=== PATIENT | female | born 1995 | race Caucasian/White ===

== ENCOUNTER 2016-05-04 19:48 | Emergency (ER) | payer MEDICAID ==
[~2016-05-04] VITALS: Ht 162.6 cm; Wt 63.5 kg
[~2016-05-04 19:48] MED LIST: CEPH-264 PO
[2016-05-04 20:10] VITALS: BP 132/58
--- NOTE | 2016-05-04 21:08 | PHYS DOC ---
Past Medical History Past Medical History: No Pertinent History Past Surgical History: Cholecystectomy Alcohol Use: None Drug Use: None Adult General Chief Complaint Chief Complaint: VOMITING IN HPI HPI Patient is a 20 year old female who presents with vomiting. Patient states that she has been having several episodes of vomiting throughout the day starting today. The patient is A1 approximate 7 weeks by date of last menstrual period which patient states was March 20, 2016. Patient states that she has been having abdominal achiness but denies any severe sharp pain currently. Patient attributes this to the multiple episodes of vomiting today. Patient states that she has not been able to tolerate solids or liquids. Patient denies any fevers or diarrhea. Patient states that she has had increased vaginal discharge but denies any vaginal bleeding or pelvic pain. The patient states that she found out she is by home test. Patient is not currently following with a physician. Review of Systems Review of Systems Constitutional: Denies fever or chills [] Eyes: Denies change in visual acuity, redness, or eye pain [] HENT: Denies nasal congestion or sore throat [] Respiratory: Denies cough or shortness of breath [] Cardiovascular: Denies chest pain or edema [] GI: Nausea, vomiting, abdominal pain, denies bloody stools or diarrhea [] : Denies dysuria or hematuria [] Musculoskeletal: Low back pain [] Integument: Denies rash or skin lesions [] Neurologic: Denies headache, focal weakness or sensory changes [] Current Medications Current Medications Current Medications Medications (Trade) Dose Ordered Sig/[facility] Start Time Stop Time Status Last Admin Dose Admin Ondansetron HCl 4 mg 4 mg 1X ONCE 05/04/16 21:30 05/04/16 21:31 DC 05/04/16 21:19 4 MG Sodium Chloride (Iv Sodium Chloride 0.9% 1000ml Bag) 1,000 ml @ 1,000 mls/hr Q1H 05/04/16 21:30 05/04/16 22:29 DC 05/04/16 21:16 1,000 MLS/HR Allergies Allergies Allergies Coded Allergies Type Severity Reaction Last Updated Verified escitalopram Allergy Unknown 04/14/14 No Physical Exam Physical Exam Constitutional: Alert, afebrile, appears in no acute distress. [] HENT: Normocephalic, atraumatic, bilateral external ears normal, oropharynx moist, no oral exudates, nose normal. [] Eyes: PERRLA, EOMI, conjunctiva normal, no discharge. [] Neck: Normal range of motion, no tenderness, supple, no stridor. [] Cardiovascular:Heart rate regular rhythm, no murmur [] Lungs & Thorax: Bilateral breath sounds clear to auscultation [] Abdomen: Bowel sounds normal, soft, no tenderness, no masses, no pulsatile masses. Pelvic: Normal external exam, no visible blood in vaginal canal, no purulent discharge, cervical os closed, no cervical motion tenderness, minimal midline tenderness on bimanual exam, no adnexal tenderness. [] Skin: Warm, dry, no erythema, no rash. [] Back: No tenderness, no CVA tenderness. [] Extremities: No tenderness, no cyanosis, no clubbing, ROM intact, no edema. [] Neurologic: Alert and oriented X 3, normal motor function, normal sensory function, no focal deficits noted. [] Current Patient Data Vital Signs Vital Signs Date Time Temp Pulse Resp B/P Pulse Ox O2 Delivery O2 Flow Rate FiO2 05/04/16 20:10 98.6 81 16 132/58 99 Room Air 98.6 Lab Values Laboratory Tests Test 05/04/16 20:09 05/04/16 20:16 White Blood Count 11.3x10^3/uL (4.0-11.0) H Red Blood Count 4.07x10^6/uL (3.50-5.40) Hemoglobin 12.4g/dL (12.0-15.5) Hematocrit 37.5% (36.0-47.0) Mean Corpuscular Volume 92fL (79-100) Mean Corpuscular Hemoglobin 30pg (25-35) Mean Corpuscular Hemoglobin Concent 33g/dL (31-37) Red Cell Distribution Width 12.7% (11.5-14.5) Platelet Count 194x10^3/uL (140-400) Neutrophils (%) (Auto) 71% (31-73) Lymphocytes (%) (Auto) 22% (24-48) L Monocytes (%) (Auto) 6% (0-9) Eosinophils (%) (Auto) 0% (0-3) Basophils (%) (Auto) 0% (0-3) Neutrophils # (Auto) 8.1x10^3uL (1.8-7.7) H Lymphocytes # (Auto) 2.5x10^3/uL (1.0-4.8) Monocytes # (Auto) 0.7x10^3/uL (0.0-1.1) Eosinophils # (Auto) 0.0x10^3/uL (0.0-0.7) Basophils # (Auto) 0.0x10^3/uL (0.0-0.2) Maternal Serum HCG Beta Subunit 40425vIB/mL (0-6) H Sodium Level 141mmol/L (136-145) Potassium Level 3.3mmol/L (3.5-5.1) L Chloride Level 105mmol/L (98-107) Carbon Dioxide Level 26mmol/L (21-32) Anion Gap 10 (6-14) Blood Urea Nitrogen 8mg/dL (7-20) Creatinine 0.6mg/dL (0.6-1.0) Estimated GFR (Cockcroft-Gault) 128.8 BUN/Creatinine Ratio 13 (6-20) Glucose Level 83mg/dL (70-99) Calcium Level 9.3mg/dL (8.5-10.1) Magnesium Level 1.8mg/dL (1.8-2.4) Total Bilirubin 0.4mg/dL (0.2-1.0) Aspartate Amino Transferase (AST) 12U/L (15-37) L Alanine Aminotransferase (ALT) 17U/L (14-59) Alkaline Phosphatase 35U/L (46-116) L Total Protein 7.4g/dL (6.4-8.2) Albumin 4.1g/dL (3.4-5.0) Albumin/Globulin Ratio 1.2 (1.0-1.7) Urine Collection Type Unknown Urine Color Dk yellow Urine Clarity Clear Urine pH 6.0 Urine Specific [place] >=1.030 Urine Protein 30mg/dL (NEG-TRACE) Urine Glucose (UA) Negativemg/dL (NEG) Urine Ketones (Stick) 40mg/dL (NEG) Urine Blood Negative (NEG) Urine Nitrite Negative (NEG) Urine Bilirubin Negative (NEG) Urine Urobilinogen Dipstick 0.2mg/dL (0.2 mg/dL) Urine Leukocyte Esterase Negative (NEG) Urine RBC 0/HPF (0-2) Urine WBC 1-4/HPF (0-4) Urine Squamous Epithelial Cells Many/LPF Urine Bacteria Moderate/HPF (0-FEW) Urine Mucus Marked/LPF Laboratory Tests 05/04/16 20:09 Laboratory Tests 05/04/16 20:09 Microbiology 05/04/16 Wet Prep - Final, Complete EKG EKG Not performed [] Radiology/Procedures Radiology/Procedures Limited bedside transabdominal ultrasound performed and interpreted by myself: Gestational sac with double decidual sign present within the uterus, no visualized yolk sac or pole, no adnexal masses, no pelvic free fluid [] Course & Med Decision Making Course & Med Decision Making Pertinent Labs and Imaging studies reviewed. (See chart for details) Patient was given IV fluids and Zofran in the emergency department. Patient states that her nausea has improved. Bedside ultrasound shows evidence of early intrauterine without confirmation of pole or heart rate. The patient's pelvic exam does not show any evidence of bleeding at this time but did show confirmation of bacterial vaginosis. Patient will be started on MetroGel for treatment. Due to presence of bacteria in the urine, the patient will also be started on Macrobid for treatment of bacteriuria during . Patient also will be treated with Reglan for nausea and vomiting during . Advise follow-up with Dr. Pritchett in 5-7 days and return to emergency department for any worsening symptoms. Patient voiced understanding and in agreement with treatment plan. Dragon Disclaimer Dragon Disclaimer This electronic medical record was generated, in whole or in part, using a voice recognition dictation system. Departure Departure Impression: Primary Impression: Bacterial vaginosis Additional Impressions: Vomiting during Bacteriuria during Disposition: 01 HOME, SELF-CARE Condition: IMPROVED Referrals: BRANT CAT MD (PCP) Patient Instructions: Bacterial Vaginosis, Nausea and Vomiting Additional Instructions: Call the office of Dr. Pritchett tomorrow morning to schedule an appointment in the next 5-7 days. Be sure to complete your antibiotics as prescribed. Return to the emergency department for any worsening symptoms. Scripts Metoclopramide Hcl (Reglan)10 Mg Tablet1 Tab PO TID PRN NAUSEA/VOMITING #30 TAB Prov:AIDEE CRUZ MD 05/04/16 Metronidazole (Metrogel-Vaginal)70 Gm Gel.w.appl1 Appful VG QHS #1 EACH Take for total of 7 days treatment Prov:AIDEE CRUZ MD 05/04/16 Nitrofurantoin Monohyd/M-Cryst (Macrobid 100 Mg Capsule)100 Mg Capsule1 Cap PO BID #14 CAP Prov:AIDEE CRUZ MD 05/04/16 Problem Qualifiers AIDEE CRUZ MD May 04, 2016 21:08
[2016-05-04 21:11] LABS: BASO % 0 % (0-3); EOS % 0 % (0-3); HEMATOCRIT 37.5 % (36.0-47.0); HEMOGLOBIN 12.4 g/dL (12.0-15.5); LYMPH # 2.5 x10^3/uL (1.0-4.8); LYMPH % 22 % (24-48); MEAN CORPUSCULAR HEMOGLOBIN 30 pg (25-35); MEAN CORPUSCULAR HGB CONC 33 g/dL (31-37); MEAN CORPUSCULAR VOLUME 92 fL (79-100); MONO % 6 % (0-9); NEUT % 71 % (31-73); PLATELET COUNT 194 x10^3/uL (140-400); RED BLOOD COUNT 4.07 x10^6/uL (3.50-5.40); RED CELL DISTRIBUTION WIDTH 12.7 % (11.5-14.5); WHITE BLOOD COUNT 11.3 x10^3/uL (4.0-11.0)
[2016-05-04 21:14] LABS: BILIRUBIN,URINE NEGATIVE (NEG); GLUCOSE,URINE NEGATIVE (NEG); NITRITE,URINE NEGATIVE (NEG); PROTEIN,URINE 30 mg/dL (NEG-TRACE); UROBILINOGEN,URINE 0.2 mg/dL (0.2 mg/dL)
[2016-05-04 21:24] LABS: CALCIUM 9.3 mg/dL (8.5-10.1); CREATININE 0.6 mg/dL (0.6-1.0); GFR 128.8; POTASSIUM 3.3 mmol/L (3.5-5.1)
[2016-05-04 21:26] LABS: BACTERIA,URINE MODERATE /HPF (0-FEW); RBC,URINE 0 /HPF (0-2); SQUAMOUS EPITHELIAL CELL,UR MANY /LPF
[2016-05-04 21:30] LABS: ALBUMIN 4.1 g/dL (3.4-5.0); ALBUMIN/GLOBULIN RATIO 1.2 (1.0-1.7); MAGNESIUM 1.8 mg/dL (1.8-2.4); TOTAL BILIRUBIN 0.4 mg/dL (0.2-1.0); TOTAL PROTEIN 7.4 g/dL (6.4-8.2)
[2016-05-04] MEDS ORDERED: IV NORMAL SALINE 1000ML BAG 1,000 ML IV SCH (21:30)
[2016-05-04] MEDS ORDERED: ONDANSETRON PF 4 MG/2 ML VIAL. IV ONE (21:30)
[2016-05-04] MEDS ORDERED: NITR100C62 PO (22:58)
[2016-05-04] MEDS ORDERED: METR70GE14 VG (22:58)
[2016-05-04] MEDS ORDERED: METO10TA81 PO (22:58)
== END 2016-05-04 23:11 | disposition home or self-care (01) ==
LOC: ER 19:48
DX: O23.591 Infection of other part of genital tract in pregnancy, first trimester (principal); N76.0 Acute vaginitis; O21.0 Mild hyperemesis gravidarum; O23.41 Unspecified infection of urinary tract in pregnancy, first trimester; Z3A.01 Less than 8 weeks gestation of pregnancy; Z90.49 Acquired absence of other specified parts of digestive tract
CPT/HCPCS: 36415; 80053; 81001; 81025; 83735; 84702; 85027; 86850; 86900; 86901; 87086; 87491; 87591; 96361; 96374; 99285; J2405; J7030; Q0111

== ENCOUNTER 2016-06-16 09:19 | Emergency (ER) | payer MEDICAID, OTHER ==
[~2016-06-16] VITALS: Ht 162.6 cm; Wt 65.8 kg
[~2016-06-16 09:19] MED LIST changes: +METO10TA81 PO; +METR70GE14 VG; +NITR100C62 PO
[2016-06-16 09:24] VITALS: BP 115/66
[2016-06-16 10:03] LABS: BILIRUBIN,URINE NEGATIVE (NEG); GLUCOSE,URINE NEGATIVE (NEG); NITRITE,URINE NEGATIVE (NEG); PH,URINE 7.5; PROTEIN,URINE NEGATIVE (NEG-TRACE); UROBILINOGEN,URINE 0.2 mg/dL (0.2 mg/dL)
[2016-06-16 10:33] LABS: BACTERIA,URINE FEW /HPF (0-FEW); RBC,URINE OCC /HPF (0-2); SQUAMOUS EPITHELIAL CELL,UR MOD /LPF
--- NOTE | 2016-06-16 10:36 | RAD ---
PROCEDURE First trimester OB ultrasound. HISTORY Abdominal cramping. TECHNIQUE Transabdominal imaging was performed. COMPARISON None available. FINDINGS Uterus measures 9.3 centimeters in length. Single intrauterine is identified with gestational sac and embryo seen. Embryonic heart motion is 162 beats per minute. The crown-rump length is 5.65 centimeters corresponding 12 weeks 2 days. Estimated date of delivery based on this measurement is December 27, 2016. No acute abnormality is identified. The right ovary measures 1.4 x 2.4 x 1.1 centimeters and is unremarkable. Left ovary is not seen. Right ovary demonstrates normal vascular flow upon Doppler interrogation and is without evidence of torsion. No adnexal masses are seen. No significant free fluid is identified. IMPRESSION Single live intrauterine . Average ultrasound age is 12 weeks 2 days. Estimated date of delivery is December 27, 2016. Electronically signed by: Yamil Conrad MD (Jun 16, 2016 10:36:02)
[2016-06-16] MEDS ORDERED: ACETAMINOPHEN 325 MG TABLET. PO ONE (11:00)
[2016-06-16] MEDS ORDERED: NITR100C62 PO (12:55)
--- NOTE | 2016-06-16 12:56 | PHYS DOC ---
Past Medical History Past Medical History: No Pertinent History Past Surgical History: Cholecystectomy Alcohol Use: None Drug Use: None Adult General Chief Complaint Chief Complaint: ABDOMINAL PAIN IN HPI HPI Patient is a 20 year old [f__sex] who presents with [] Review of Systems Review of Systems Constitutional: Denies fever or chills [] Eyes: Denies change in visual acuity, redness, or eye pain [] HENT: Denies nasal congestion or sore throat [] Respiratory: Denies cough or shortness of breath [] Cardiovascular: No additional information not addressed in HPI [] GI: Denies abdominal pain, nausea, vomiting, bloody stools or diarrhea [] : Denies dysuria or hematuria [] Musculoskeletal: Denies back pain or joint pain [] Integument: Denies rash or skin lesions [] Neurologic: Denies headache, focal weakness or sensory changes [] Endocrine: Denies polyuria or polydipsia [] Current Medications Current Medications Current Medications Medications (Trade) Dose Ordered Sig/[facility] Start Time Stop Time Status Last Admin Dose Admin Acetaminophen (Tylenol) 650 mg 1X ONCE 06/16/16 11:00 06/16/16 11:01 DC Allergies Allergies Allergies Coded Allergies Type Severity Reaction Last Updated Verified escitalopram Allergy Intermediate 06/16/16 No Physical Exam Physical Exam Constitutional: Well developed, well nourished, no acute distress, non-toxic appearance. [] HENT: Normocephalic, atraumatic, bilateral external ears normal, oropharynx moist, no oral exudates, nose normal. [] Eyes: PERRLA, EOMI, conjunctiva normal, no discharge. [] Neck: Normal range of motion, no tenderness, supple, no stridor. [] Cardiovascular:Heart rate regular rhythm, no murmur [] Lungs & Thorax: Bilateral breath sounds clear to auscultation [] Abdomen: Bowel sounds normal, soft, no tenderness, no masses, no pulsatile masses. [] Skin: Warm, dry, no erythema, no rash. [] Back: No tenderness, no CVA tenderness. [] Extremities: No tenderness, no cyanosis, no clubbing, ROM intact, no edema. [] Neurologic: Alert and oriented X 3, normal motor function, normal sensory function, no focal deficits noted. [] Psychologic: Affect normal, judgement normal, mood normal. [] Current Patient Data Vital Signs Vital Signs Date Time Temp Pulse Resp B/P Pulse Ox O2 Delivery O2 Flow Rate FiO2 06/16/16 09:24 98.2 101 20 115/66 97 Room Air 98.2 Lab Values Laboratory Tests Test 06/16/16 09:25 06/16/16 09:59 Urine Collection Type Unknown Urine Color Yellow Urine Clarity Clear Urine pH 7.5 Urine Specific [place] 1.020 Urine Protein Negativemg/dL (NEG-TRACE) Urine Glucose (UA) Negativemg/dL (NEG) Urine Ketones (Stick) Negativemg/dL (NEG) Urine Blood Negative (NEG) Urine Nitrite Negative (NEG) Urine Bilirubin Negative (NEG) Urine Urobilinogen Dipstick 0.2mg/dL (0.2 mg/dL) Urine Leukocyte Esterase Small (NEG) Urine RBC Occ/HPF (0-2) Urine WBC 1-4/HPF (0-4) Urine Squamous Epithelial Cells Mod/LPF Urine Bacteria Few/HPF (0-FEW) Urine Mucus Slight/LPF Maternal Serum HCG Beta Subunit 09570yWK/mL (0-6) H EKG EKG [] Radiology/Procedures Radiology/Procedures [] Course & Med Decision Making Course & Med Decision Making Pertinent Labs and Imaging studies reviewed. (See chart for details) [] Dragon Disclaimer Dragon Disclaimer This electronic medical record was generated, in whole or in part, using a voice recognition dictation system. Departure Departure Impression: Primary Impression: Abdominal pain during in first trimester Additional Impression: Vomiting during Disposition: 01 HOME, SELF-CARE Condition: STABLE Referrals: MIA FERNANDEZ MD (PCP) Patient Instructions: Abdominal Pain During , [id number] Additional Instructions: The ultrasound shows a 12 week 2 day gestational date. Does not show any other acute abnormalities. You do have a bladder infection when he taken a Vicodin next 7 days. Please follow-up with your [facility] within the next few days. Return ER for worsening pain, fevers or other concerns. Scripts Nitrofurantoin Monohyd/M-Cryst (Macrobid 100 Mg Capsule)100 Mg Capsule1 Cap PO BID #14 CAP Prov:PAVAN SOLOMON MD 06/16/16 Problem Qualifiers PAVAN SOLOMON MD Jun 16, 2016 12:56 MARILY PADILLA APRN Jun 16, 2016 15:09
== END 2016-06-16 13:00 | disposition home or self-care (01) ==
LOC: ER 09:19
DX: O26.891 Other specified pregnancy related conditions, first trimester (principal); R10.9 Unspecified abdominal pain; O21.9 Vomiting of pregnancy, unspecified; Z3A.12 12 weeks gestation of pregnancy; Z90.49 Acquired absence of other specified parts of digestive tract; Z88.8 Allergy status to other drugs, medicaments and biological substances
CPT/HCPCS: 36415; 76801; 81001; 84702; 87086; 99285-25

== ENCOUNTER 2016-07-04 10:46 | Emergency (ER) | payer OTHER ==
[~2016-07-04] VITALS: Ht 162.6 cm; Wt 65.8 kg
[2016-07-04 10:56] VITALS: BP 100/61
--- NOTE | 2016-07-04 11:55 | PHYS DOC ---
Past Medical History Past Medical History: Other Additional Past Medical Histor: preeclampsia Past Surgical History: Cholecystectomy Alcohol Use: None Drug Use: None Adult General Chief Complaint Chief Complaint: ABDOMINAL PAIN IN HPI HPI Patient is a 20 year old female, 3 para 1 is approximately 15 weeks gestation presents emergency Department today with complaint of diffuse upper abdominal pain that radiates to her back with nausea and vomiting that began 2 days ago. Patient also reports changes in the caliber of her stool in which his become more liquid over the past 2 days as well. Patient denies history of chronic gastrointestinal disease. She had a gallbladder removed and 2015 at [facility]. Patient denies history of bowel obstruction. Patient's last by mouth intake was at 8 AM. She is followed by Dr. Pritchett [employer]. Patient complications from her first full term in which she had preeclampsia. She denies any history of eclampsia. She is currently on light activity and followed closely by Dr. Pritchett. She states that she called his service today and was advised to come to the emergency department for evaluation. Patient denies pelvic pain, vaginal bleeding, vaginal discharge, dysuria or hematuria. She also denies flank pain. Review of Systems Review of Systems Constitutional: Denies fever or chills [] Eyes: Denies change in visual acuity, redness, or eye pain [] HENT: Denies nasal congestion or sore throat [] Respiratory: Denies cough or shortness of breath [] Cardiovascular: No additional information not addressed in HPI [] GI: Denies abdominal pain, nausea, vomiting, bloody stools or diarrhea [] : Denies dysuria or hematuria [] Musculoskeletal: Denies back pain or joint pain [] Integument: Denies rash or skin lesions [] Neurologic: Denies headache, focal weakness or sensory changes [] Endocrine: Denies polyuria or polydipsia [] Current Medications Current Medications Current Medications Medications (Trade) Dose Ordered Sig/[facility] Start Time Stop Time Status Last Admin Dose Admin Promethazine HCl/ Sodium Chloride (Phenergan/Iv Sodium Chloride 0.9% 50ml) 50.5 ml @ 151.5 mls/ hr PRN Q6HRS PRN 07/04/16 12:00 07/04/16 12:55 151.5 MLS/HR Sodium Chloride (Iv Sodium Chloride 0.9% 1000ml Bag) 1,000 ml @ 1,000 mls/hr Q1H 07/04/16 12:30 07/04/16 13:29 07/04/16 12:14 1,000 MLS/HR Sodium Chloride 10 ml 10 ml QSHIFT PRN 07/04/16 12:00 Allergies Allergies Allergies Coded Allergies Type Severity Reaction Last Updated Verified escitalopram Allergy Intermediate 06/16/16 No Physical Exam Physical Exam Constitutional: Well developed, well nourished, no acute distress, non-toxic appearance. HENT: Normocephalic, atraumatic, bilateral external ears normal, oropharynx moist, no oral exudates, nose normal. [] Eyes: PERRLA, EOMI, conjunctiva normal, no discharge. [] Neck: Normal range of motion, no tenderness, supple, no stridor. [] Cardiovascular:Heart rate regular rhythm, no murmur [] Lungs & Thorax: Bilateral breath sounds clear to auscultation [] Abdomen: Abdomen is soft and nondistended. There are hyperactive bowel sounds in all 4 quadrants. The fundus of the uterus is barely palpable outside the pelvic brim without tenderness or palpable defects. Skin: Warm, dry, no erythema, no rash. [] Back: No tenderness, no CVA tenderness. [] Extremities: No tenderness, no cyanosis, no clubbing, ROM intact, no edema. [] Neurologic: Alert and oriented X 3, normal motor function, normal sensory function, no focal deficits noted. [] Psychologic: Affect normal, judgement normal, mood normal. [] Current Patient Data Vital Signs Vital Signs Date Time Temp Pulse Resp B/P Pulse Ox O2 Delivery O2 Flow Rate FiO2 07/04/16 10:56 97.4 96 16 100/61 100 Room Air 97.4 Lab Values Laboratory Tests Test 07/04/16 11:54 07/04/16 12:01 Urine Collection Type Unknown Urine Color Yellow Urine Clarity Clear Urine pH 6.0 Urine Specific [place] 1.025 Urine Protein Negativemg/dL (NEG-TRACE) Urine Glucose (UA) Negativemg/dL (NEG) Urine Ketones (Stick) Negativemg/dL (NEG) Urine Blood Negative (NEG) Urine Nitrite Negative (NEG) Urine Bilirubin Negative (NEG) Urine Urobilinogen Dipstick 0.2mg/dL (0.2 mg/dL) Urine Leukocyte Esterase Negative (NEG) Urine RBC 0/HPF (0-2) Urine WBC 1-4/HPF (0-4) Urine Squamous Epithelial Cells Mod/LPF Urine Bacteria 0/HPF (0-FEW) Urine Mucus Marked/LPF White Blood Count 9.0x10^3/uL (4.0-11.0) Red Blood Count 4.45x10^6/uL (3.50-5.40) Hemoglobin 13.8g/dL (12.0-15.5) Hematocrit 41.3% (36.0-47.0) Mean Corpuscular Volume 93fL (79-100) Mean Corpuscular Hemoglobin 31pg (25-35) Mean Corpuscular Hemoglobin Concent 33g/dL (31-37) Red Cell Distribution Width 12.5% (11.5-14.5) Platelet Count 193x10^3/uL (140-400) Neutrophils (%) (Auto) 68% (31-73) Lymphocytes (%) (Auto) 24% (24-48) Monocytes (%) (Auto) 7% (0-9) Eosinophils (%) (Auto) 1% (0-3) Basophils (%) (Auto) 1% (0-3) Neutrophils # (Auto) 6.1x10^3uL (1.8-7.7) Lymphocytes # (Auto) 2.2x10^3/uL (1.0-4.8) Monocytes # (Auto) 0.6x10^3/uL (0.0-1.1) Eosinophils # (Auto) 0.1x10^3/uL (0.0-0.7) Basophils # (Auto) 0.0x10^3/uL (0.0-0.2) Sodium Level 138mmol/L (136-145) Potassium Level 4.0mmol/L (3.5-5.1) Chloride Level 101mmol/L (98-107) Carbon Dioxide Level 28mmol/L (21-32) Anion Gap 9 (6-14) Blood Urea Nitrogen 7mg/dL (7-20) Creatinine 0.5mg/dL (0.6-1.0) L Estimated GFR (Cockcroft-Gault) 158.9 BUN/Creatinine Ratio 14 (6-20) Glucose Level 64mg/dL (70-99) L Calcium Level 9.4mg/dL (8.5-10.1) Total Bilirubin 0.3mg/dL (0.2-1.0) Aspartate Amino Transferase (AST) 21U/L (15-37) Alanine Aminotransferase (ALT) 15U/L (14-59) Alkaline Phosphatase 33U/L (46-116) L Total Protein 7.9g/dL (6.4-8.2) Albumin 3.7g/dL (3.4-5.0) Albumin/Globulin Ratio 0.9 (1.0-1.7) L Lipase 137U/L (73-393) Laboratory Tests 07/04/16 12:01 Laboratory Tests 07/04/16 12:01 EKG EKG [] Radiology/Procedures Radiology/Procedures [[facility] [address] [place] [address] IMAGING REPORT Signed PATIENT: RACHEAL ROWE ACCOUNT: [id number] : 1995 LOCATION: ER AGE: 20 SEX: F EXAM STATUS: REG ER ORD. PHYSICIAN: JACQUES GAXIOLA REASON: diffuse abdominal pain, N/V, 15 weeks , Lap [place] 2014 PROCEDURE: ABDOMEN COMPLETE Ultrasound of the abdomen 07/04/2016 Clinical history: Diffuse abdominal pain. Technique: A real-time ultrasound examination of the abdomen was performed. Multiple images were obtained. Findings: The gallbladder is not visualized consistent with a cholecystectomy. The liver is normal in size measuring 14.4 cm in length. No focal abnormality of the liver is seen. The common bile duct measures 4 mm in diameter which is within normal limits. The spleen, visualized portions of the pancreas and kidneys are within normal limits. The abdominal aorta tapers normally. The inferior vena cava is within normal limits. No free fluid is seen. Impression: 1. Status post cholecystectomy. 2. Otherwise negative study. DICTATED and SIGNED BY: CARLA BRIONES MD DATE: 07/04/16 0264 CC: MIA PRITCHETT MD; JACQUES GAXIOLA; NON,STAFF ~ ] Course & Med Decision Making Course & Med Decision Making Patient's had an uncomplicated stay here in the emergency department. She's had no episodes of vomiting or diarrhea since she's been here. She's been resting comfortably in the bed. I reexamined her abdomen and found that he continues to be soft without any focal area of pain. Patient states that she feels "much better" at this time. I spoke with Dr. Pritchett. He is comfortable with the plan of having patient follow up with him in the office this coming week. He asked that we change the nausea medication to Phenergan. Dragon Disclaimer Dragon Disclaimer This electronic medical record was generated, in whole or in part, using a voice recognition dictation system. Departure Departure Impression: Primary Impression: Gastroenteritis Disposition: HOME, SELF-CARE Condition: GOOD Referrals: MIA PRITCHETT MD (PCP) Patient Instructions: Viral Gastroenteritis, [id number] Additional Instructions: 1. Review the discharge instructions provided for self-care and reasons to return to the emergency department. 2. Take the medication as prescribed. 3. Call Dr. Pritchett's office in the morning to schedule follow-up appointment for reevaluation by Tuesday or of this week. Scripts Promethazine Hcl 25 Mg Tablet1 Tab PO PRN Q6HRS nausea and vomiting #20 TAB Prov:JACQUES GAXIOLA 07/04/16 JACQUES GAXIOLA Jul 04, 2016 11:55
[2016-07-04] MEDS ORDERED: PROMETHAZINE 12.5 MG in IV NORMAL SALINE 50ML 50 ML IV PRN (12:00)
[2016-07-04] MEDS ORDERED: 0.9 % SODIUM CHLORIDE 10 ML DISP.SYRIN. IV PRN (12:00)
[2016-07-04 12:09] LABS: BASO % 1 % (0-3); EOS % 1 % (0-3); HEMATOCRIT 41.3 % (36.0-47.0); HEMOGLOBIN 13.8 g/dL (12.0-15.5); LYMPH # 2.2 x10^3/uL (1.0-4.8); LYMPH % 24 % (24-48); MEAN CORPUSCULAR HEMOGLOBIN 31 pg (25-35); MEAN CORPUSCULAR HGB CONC 33 g/dL (31-37); MEAN CORPUSCULAR VOLUME 93 fL (79-100); MONO % 7 % (0-9); NEUT % 68 % (31-73); PLATELET COUNT 193 x10^3/uL (140-400); RED BLOOD COUNT 4.45 x10^6/uL (3.50-5.40); RED CELL DISTRIBUTION WIDTH 12.5 % (11.5-14.5)
[2016-07-04 12:12] LABS: BILIRUBIN,URINE NEGATIVE (NEG); GLUCOSE,URINE NEGATIVE (NEG); NITRITE,URINE NEGATIVE (NEG); PROTEIN,URINE NEGATIVE (NEG-TRACE); UROBILINOGEN,URINE 0.2 mg/dL (0.2 mg/dL)
[2016-07-04 12:26] LABS: BACTERIA,URINE 0 /HPF (0-FEW); RBC,URINE 0 /HPF (0-2); SQUAMOUS EPITHELIAL CELL,UR MOD /LPF
[2016-07-04 12:30] LABS: CALCIUM 9.4 mg/dL (8.5-10.1); CREATININE 0.5 mg/dL (0.6-1.0); GFR 158.9
[2016-07-04] MEDS ORDERED: IV NORMAL SALINE 1000ML BAG 1,000 ML IV SCH (12:30)
[2016-07-04 12:36] LABS: ALBUMIN 3.7 g/dL (3.4-5.0); ALBUMIN/GLOBULIN RATIO 0.9 (1.0-1.7); TOTAL BILIRUBIN 0.3 mg/dL (0.2-1.0); TOTAL PROTEIN 7.9 g/dL (6.4-8.2)
--- NOTE | 2016-07-04 12:43 | RAD ---
Ultrasound of the abdomen 07/04/2016 Clinical history: Diffuse abdominal pain. Technique: A real-time ultrasound examination of the abdomen was performed. Multiple images were obtained. Findings: The gallbladder is not visualized consistent with a cholecystectomy. The liver is normal in size measuring 14.4 cm in length. No focal abnormality of the liver is seen. The common bile duct measures 4 mm in diameter which is within normal limits. The spleen, visualized portions of the pancreas and kidneys are within normal limits. The abdominal aorta tapers normally. The inferior vena cava is within normal limits. No free fluid is seen. Impression: 1. Status post cholecystectomy. 2. Otherwise negative study.
[2016-07-04] MEDS ORDERED: PROM25TA10 PO (13:24)
== END 2016-07-04 13:37 | disposition home or self-care (01) ==
LOC: ER 10:46
DX: O99.612 Diseases of the digestive system complicating pregnancy, second trimester (principal); K52.9 Noninfective gastroenteritis and colitis, unspecified; Z90.49 Acquired absence of other specified parts of digestive tract; Z88.8 Allergy status to other drugs, medicaments and biological substances; Z3A.15 15 weeks gestation of pregnancy
CPT/HCPCS: 36415; 76700; 80053; 81001; 83690; 85027; 86850; 86900; 86901; 96361; 96365; 99285; J2550; J7030

== ENCOUNTER 2016-10-04 16:52 | Observation (INO) | payer OTHER ==
[~2016-10-04 16:52] MED LIST changes: +PROM25TA10 PO
[2016-10-04 17:57] LABS: BILIRUBIN,URINE NEGATIVE (NEG); GLUCOSE,URINE NEGATIVE (NEG); NITRITE,URINE NEGATIVE (NEG); PROTEIN,URINE NEGATIVE (NEG-TRACE); UROBILINOGEN,URINE 0.2 mg/dL (0.2 mg/dL)
[2016-10-04] MEDS ORDERED: IV RINGERS,LACTATED 1000ML 1,000 ML IV SCH (18:00)
[2016-10-04] MEDS ORDERED: hydrOXYzine PAMOATE 25 MG CAPSULE PO PRN (18:30)
== END 2016-10-04 21:32 | disposition home or self-care (01) ==
LOC: 3 SO LND 16:52
PROVIDERS: ADMIT Specialist; ATTEND Specialist
DX: O26.893 Other specified pregnancy related conditions, third trimester (principal); R10.30 Lower abdominal pain, unspecified; R42 Dizziness and giddiness; Z3A.28 28 weeks gestation of pregnancy
CPT/HCPCS: 81003; 96360; 96361; G0378; G0379; Q0177; J7120

== ENCOUNTER 2016-11-04 23:49 | Observation (INO) | payer OTHER ==
[2016-11-05 00:21] LABS: BILIRUBIN,URINE NEGATIVE (NEG); GLUCOSE,URINE NEGATIVE (NEG); NITRITE,URINE NEGATIVE (NEG); PROTEIN,URINE NEGATIVE (NEG-TRACE); UROBILINOGEN,URINE 0.2 mg/dL (0.2 mg/dL)
[2016-11-05 00:27] LABS: BARBITURATES NEG (NEG); BENZODIAZEPINES NEG (NEG); CANNABINOIDS POS (NEG); COCAINE NEG (NEG); METHADONE NEG (NEG); OPIATES NEG (NEG); PHENCYCLIDINE NEG (NEG)
[2016-11-05 00:35] LABS: BACTERIA,URINE 0 /HPF (0-FEW); RBC,URINE 0 /HPF (0-2); SQUAMOUS EPITHELIAL CELL,UR MOD /LPF
[2016-11-05 00:41] LABS: NEG OBC AMNIO NEG; POS OBC AMNIO POS
[2016-11-05] MEDS ORDERED: hydrOXYzine PAMOATE 25 MG CAPSULE PO PRN (01:15)
== END 2016-11-05 01:20 | disposition home or self-care (01) ==
LOC: 3 SO LND 23:49
PROVIDERS: ADMIT Specialist; ATTEND Specialist
DX: O26.893 Other specified pregnancy related conditions, third trimester (principal); R10.9 Unspecified abdominal pain; R10.2 Pelvic and perineal pain; N89.8 Other specified noninflammatory disorders of vagina; Z3A.32 32 weeks gestation of pregnancy
CPT/HCPCS: 36415; 80307; 81001; 84112; G0378; G0379; G0479

== ENCOUNTER 2016-11-22 15:10 | Observation (INO) | payer OTHER ==
[2016-11-22 16:03] LABS: BILIRUBIN,URINE NEGATIVE (NEG); GLUCOSE,URINE NEGATIVE (NEG); NITRITE,URINE NEGATIVE (NEG); PROTEIN,URINE NEGATIVE (NEG-TRACE); UROBILINOGEN,URINE 0.2 mg/dL (0.2 mg/dL)
[2016-11-22 16:24] LABS: BACTERIA,URINE FEW /HPF (0-FEW); RBC,URINE 0 /HPF (0-2); SQUAMOUS EPITHELIAL CELL,UR MOD /LPF; WBC,URINE OCC /HPF (0-4)
[2016-11-22] MEDS ORDERED: IV RINGERS,LACTATED 1000ML 1,000 ML IV SCH (17:00)
== END 2016-11-22 18:39 | disposition home or self-care (01) ==
LOC: 3 SO LND 15:10
PROVIDERS: ADMIT Specialist; ATTEND Specialist
DX: O26.893 Other specified pregnancy related conditions, third trimester (principal); R10.2 Pelvic and perineal pain; Z3A.35 35 weeks gestation of pregnancy
CPT/HCPCS: 81001; G0378; G0379

== ENCOUNTER 2016-12-08 20:54 | Observation (INO) | payer OTHER ==
[2016-12-08] MEDS ORDERED: IV RINGERS,LACTATED 1000ML 1,000 ML IV SCH (20:59)
[2016-12-08] MEDS ORDERED: ACETAMINOPHEN 325 MG TABLET. PO PRN (21:00)
[2016-12-08 22:10] LABS: BILIRUBIN,URINE NEGATIVE (NEG); GLUCOSE,URINE NEGATIVE (NEG); NITRITE,URINE NEGATIVE (NEG); PH,URINE 7.5; PROTEIN,URINE NEGATIVE (NEG-TRACE); UROBILINOGEN,URINE 0.2 mg/dL (0.2 mg/dL)
[2016-12-08 22:15] LABS: BARBITURATES NEG (NEG); BENZODIAZEPINES NEG (NEG); CANNABINOIDS POS (NEG); COCAINE NEG (NEG); METHADONE NEG (NEG); OPIATES NEG (NEG); PHENCYCLIDINE NEG (NEG)
[2016-12-08 22:16] LABS: BACTERIA,URINE 0 /HPF (0-FEW); RBC,URINE RARE /HPF (0-2); SQUAMOUS EPITHELIAL CELL,UR FEW /LPF; WBC,URINE OCC /HPF (0-4)
[2016-12-08] MEDS ORDERED: hydrOXYzine PAMOATE 25 MG CAPSULE PO PRN (22:30)
[2016-12-08 23:41] LABS: BASO % 0 % (0-3); EOS % 1 % (0-3); HEMATOCRIT 35.1 % (36.0-47.0); HEMOGLOBIN 11.9 g/dL (12.0-15.5); LYMPH # 2.1 x10^3/uL (1.0-4.8); LYMPH % 20 % (24-48); MEAN CORPUSCULAR HEMOGLOBIN 31 pg (25-35); MEAN CORPUSCULAR HGB CONC 34 g/dL (31-37); MEAN CORPUSCULAR VOLUME 91 fL (79-100); MONO % 7 % (0-9); NEUT % 72 % (31-73); PLATELET COUNT 184 x10^3/uL (140-400); RED BLOOD COUNT 3.84 x10^6/uL (3.50-5.40); RED CELL DISTRIBUTION WIDTH 13.3 % (11.5-14.5); WHITE BLOOD COUNT 10.4 x10^3/uL (4.0-11.0)
[2016-12-09 00:07] LABS: ALBUMIN 2.4 g/dL (3.4-5.0); ALBUMIN/GLOBULIN RATIO 0.6 (1.0-1.7); CALCIUM 8.6 mg/dL (8.5-10.1); CREATININE 0.4 mg/dL (0.6-1.0); GFR 203.5; POTASSIUM 3.4 mmol/L (3.5-5.1); TOTAL BILIRUBIN 0.1 mg/dL (0.2-1.0); TOTAL PROTEIN 6.5 g/dL (6.4-8.2); URIC ACID 3.4 mg/dL (2.6-6.0)
== END 2016-12-09 11:45 | disposition home or self-care (01) ==
LOC: 3 SO LND 20:54
PROVIDERS: ADMIT Specialist; ATTEND Specialist
DX: O62.9 Abnormality of forces of labor, unspecified (principal); O26.853 Spotting complicating pregnancy, third trimester; Z3A.37 37 weeks gestation of pregnancy
CPT/HCPCS: 36415; 80053; 80307; 81001; 84550; 85025; 96360; 96361; G0378; G0379; Q0177; J7120; G0479

== ENCOUNTER 2016-12-14 00:04 | Inpatient (IN) | payer OTHER ==
[~2016-12-14] VITALS: Ht 165.1 cm; Wt 93.0 kg
[2016-12-14 00:29] LABS: BILIRUBIN,URINE NEGATIVE (NEG); GLUCOSE,URINE NEGATIVE (NEG); NITRITE,URINE NEGATIVE (NEG); PROTEIN,URINE NEGATIVE (NEG-TRACE); UROBILINOGEN,URINE 0.2 mg/dL (0.2 mg/dL)
[2016-12-14 00:34] LABS: BARBITURATES NEG (NEG); BENZODIAZEPINES NEG (NEG); CANNABINOIDS POS (NEG); COCAINE NEG (NEG); METHADONE NEG (NEG); OPIATES NEG (NEG); PHENCYCLIDINE NEG (NEG)
[2016-12-14 00:45] LABS: BACTERIA,URINE FEW /HPF (0-FEW)
[2016-12-14 00:46] LABS: SQUAMOUS EPITHELIAL CELL,UR MOD /LPF
[2016-12-14] MEDS ORDERED: TERBUTALINE 1 MG/ML VIAL. SQ PRN (02:30)
[2016-12-14] MEDS ORDERED: 0.9 % SODIUM CHLORIDE 10 ML DISP.SYRIN. IV PRN ×2 (02:30→17:45)
[2016-12-14] MEDS ORDERED: fentaNYL PF VIAL 100 MCG/2 ML VIAL IV PRN (02:30)
[2016-12-14] MEDS ORDERED: BUTORPHANOL 2 MG/ML VIAL. IV PRN ×2 (02:30)
[2016-12-14] MEDS ORDERED: OXYTOCIN 30 UNIT/500 ML PREMIX 500 ML IV PRN ×3 (02:30→17:45)
[2016-12-14] MEDS ORDERED: LIDOCAINE 1% PF 30 ML VIAL. INJ PRN (02:30)
[2016-12-14 03:25] LABS: BASO % 0 % (0-3); EOS % 1 % (0-3); HEMATOCRIT 38.2 % (36.0-47.0); HEMOGLOBIN 12.6 g/dL (12.0-15.5); LYMPH # 2.3 x10^3/uL (1.0-4.8); LYMPH % 21 % (24-48); MEAN CORPUSCULAR HEMOGLOBIN 30 pg (25-35); MEAN CORPUSCULAR HGB CONC 33 g/dL (31-37); MEAN CORPUSCULAR VOLUME 91 fL (79-100); MONO % 9 % (0-9); NEUT % 70 % (31-73); PLATELET COUNT 195 x10^3/uL (140-400); RED BLOOD COUNT 4.21 x10^6/uL (3.50-5.40); RED CELL DISTRIBUTION WIDTH 13.1 % (11.5-14.5)
[2016-12-14 03:41] LABS: ALBUMIN 2.6 g/dL (3.4-5.0); ALBUMIN/GLOBULIN RATIO 0.6 (1.0-1.7); CALCIUM 9.1 mg/dL (8.5-10.1); CREATININE 0.5 mg/dL (0.6-1.0); GFR 157.3; POTASSIUM 3.9 mmol/L (3.5-5.1); TOTAL BILIRUBIN 0.1 mg/dL (0.2-1.0); URIC ACID 3.5 mg/dL (2.6-6.0)
[2016-12-14 03:43] VITALS: BP 123/69
[2016-12-14] MEDS ORDERED: AMPICILLIN SODIUM 2 GM in IV NORMAL SALINE 100ML 100 ML IV ONE (04:00)
[2016-12-14] MEDS ORDERED: INFLUENZA VAX SCREEN BY RX. MC ONE (04:00)
[2016-12-14] MEDS: IV RINGERS,LACTATED 1000ML 1,000 ML IV SCH ×6 (04:12→18:30)
[2016-12-14] MEDS ORDERED: AMPICILLIN SODIUM 1 GM in IV NORMAL SALINE 50ML 50 ML IV SCH (08:00)
[2016-12-14] MEDS ORDERED: FLU VACC QS2017-18 (36MOS+)/PF 0.5 ML SYRINGE. VAX IM ONE (09:00)
--- NOTE | 2016-12-14 17:39 | PDOC1 ---
OB - History Hx of Present Care: Good Care Ultrasounds: No ultrasounds Obstetrical Complications: Gestational Hypertension Medical Complications: None Past Family/Social History * Past Medical, Surgical, Family and Obstetric Histories reviewed from chart. Blood Type: O+ Rubella: Immune RPR/VDRL: Negative GBS Status: Unknown HBsAG: Negative OB - Chief Complaint & HPI Date of Admission: Date of Admission: Dec 14, 2016 at 00:04 Chief Complaint/History : 3 Para: 1 EDC: Dec 27, 2016 Reason for admission: active labor, other (H/O PIH) Admission Nurse Assessment Rev: Yes Problems: OB - Admission Exam Physical Exam Vitals: VS - Last 72 Hours, by Label Date Time Temp Pulse Resp B/P (MAP) Pulse Ox O2 Delivery O2 Flow Rate FiO2 12/14/16 15:17 20 12/14/16 03:43 98.7 113 20 123/69 (87) Room Air 98.7 HEENT: Normal, Nasal Mucosa Normal, Oropharynx Normal, Moist Membranes, Fontanelles Normal Heart: Regular Rate Lungs: Clear, Equal Abdomen: Gravid Extremities: Normal Pulses, No tenderness or swelling Reflexes: Normal Cervical Dilatation: 3cm Effacement: 50% Station: Ballotable Membranes: Intact Amniotic Fluid: Clear Heart Rate: Normal Accelerations: Accelerations Present Decelerations: No decelerations Short Term Variability: Present Contractions on Admission: 6-10 Minutes Apart Intensity: Moderate Assessment/Plan Assessment/Plan TIUP H/O PIH Early labor Augmentation Problems: MIA FERNANDEZ MD Dec 14, 2016 17:39
[2016-12-14] MEDS ORDERED: PHENYLEPH/MINERAL OIL/PETROLAT RECTAL OINTMENT 28GM TUBE. RC PRN (17:45)
[2016-12-14] MEDS ORDERED: diphenhydrAMINE HCL 25 MG CAPSULE PO PRN (17:45)
[2016-12-14] MEDS ORDERED: ZOLPIDEM 5 MG TABLET. PO PRN (17:45)
[2016-12-14] MEDS ORDERED: ACETAMINOPHEN 325 MG TABLET. PO PRN (17:45)
[2016-12-14] MEDS ORDERED: BENZOCAINE 20% TOPICAL AEROSOL SPRAY 57GM CAN. TP PRN (17:45)
[2016-12-14] MEDS ORDERED: MAGNESIUM HYDROXIDE 2,400 MG/30 ML ORAL.SUSP. PO PRN (17:45)
[2016-12-14] MEDS ORDERED: MAG HYDROX/ALUMINUM HYD/SIMETH 30 ML ORAL.SUSP PO PRN (17:45)
[2016-12-14] MEDS ORDERED: SIMETHICONE 80 MG TAB.CHEW PO PRN (17:45)
[2016-12-14] MEDS ORDERED: HYDROCORTISONE 1% TOPICAL OINTMENT 30GM TUBE. TP PRN (17:45)
[2016-12-14 20:45] VITALS: BP 107/65
[2016-12-14 21:45] VITALS: BP 108/63
[2016-12-14] MEDS: IBUPROFEN 800 MG TABLET. PO SCH (22:23)
[2016-12-14] MEDS: HYDROcodone/APAP 5/325MG 1 TAB TABLET PO PRN (22:23)
[2016-12-15] MEDS: IV RINGERS,LACTATED 1000ML 1,000 ML IV SCH ×6 (00:12→18:30)
[2016-12-15 02:00] VITALS: BP 106/50
[2016-12-15] MEDS: HYDROcodone/APAP 5/325MG 1 TAB TABLET PO PRN ×5 (02:52→22:26)
[2016-12-15 06:00] VITALS: BP 110/68
[2016-12-15] MEDS: IBUPROFEN 800 MG TABLET. PO SCH ×3 (06:12→22:00)
[2016-12-15] MEDS ORDERED: FERROUS SULFATE 325 MG TABLET. PO SCH (08:00)
[2016-12-15 08:30] VITALS: BP 116/73
--- NOTE | 2016-12-15 11:43 | PDOC ---
Provider Note Provider Note Doing well VSS uterus NTTP FU in AM MIA FERNANDEZ MD Dec 15, 2016 11:43
[2016-12-15] MEDS: DOCUSATE SODIUM 100 MG CAPSULE. PO PRN (11:49)
[2016-12-15] MEDS: IBUPROFEN 600 MG TABLET. PO PRN (22:26)
[2016-12-16] MEDS: IV RINGERS,LACTATED 1000ML 1,000 ML IV SCH ×2 (00:12→02:30)
[2016-12-16 06:30] VITALS: BP 117/76
[2016-12-16] MEDS: IBUPROFEN 800 MG TABLET. PO SCH (06:35)
[2016-12-16] MEDS: HYDROcodone/APAP 5/325MG 1 TAB TABLET PO PRN ×2 (09:15→13:35)
[2016-12-16] MEDS: DOCUSATE SODIUM 100 MG CAPSULE. PO PRN (09:15)
[2016-12-16 13:19] VITALS: BP 116/83
[2016-12-16] MEDS: IBUPROFEN 600 MG TABLET. PO PRN (13:35)
--- NOTE | 2016-12-16 13:54 | PDOC ---
VAGINAL DELIVERY DATE DATE: 12/16/16 TIME: 13:52 : 3 Para: 1 EDC: Dec 27, 2016 VAGINAL DELIVERY: VTX VACCUM ASSISTED: No PLACENTA: Spontaneous SEX: Male WEIGHT 3100gms Nuchal Cord: No Amniotic Fluid: Clear PAIN: Epidural EPISIOTOMY: No EBL 300cc COMPLICATIONS NONE CONDITION Stable Problems: MIA FERNANDEZ MD Dec 16, 2016 13:54
--- NOTE | 2016-12-16 13:55 | PDOC3 ---
OB DISCHARGE SUMMARY DATE OF ADMISSION: 12/14/16 DATE OF DISCHARGE: 12/16/16 REASON FOR ADMISSION: Onset of labor PROCEDURES: Ultrasound INTRAPARTUM PROCEDURES: Spontanous Vag Deliv PROCEDURES: None OPERATIONS: None DISCHARGE INFORMATION: Activity, Diet HOSPITAL COURSE Unremarkable CONDITION AT DISCHARGE Stable MIA FERNANDEZ MD Dec 16, 2016 13:55
[2016-12-16] MEDS ORDERED: HYDR-971 PO (13:58)
[2016-12-16] MEDS ORDERED: NAPR-683 PO (13:58)
== END 2016-12-16 16:00 | disposition home or self-care (01) | DRG 775 ==
LOC: OBSVTOIN 00:04 → 3 SO LND 00:04 → 3 NORTH 20:30
PROVIDERS: ADMIT Specialist; ATTEND Specialist
PROC: 10E0XZZ Delivery of Products of Conception, External Approach (ICD-10-PCS; principal; 2016-12-16)
PROC: 00HU33Z Insertion of Infusion Device into Spinal Canal, Percutaneous Approach (ICD-10-PCS; 2016-12-16)
DX: O13.4 Gestational [pregnancy-induced] hypertension without significant proteinuria, complicating childbirth (principal); Z37.0 Single live birth; Z3A.38 38 weeks gestation of pregnancy
CPT/HCPCS: 36415; 80053; 80307; 81001; 84550; 85014; 85025; 86593; 86850; 86900; 86901; 90686; J0290; J2590; J3010; J7120; G0479

== ENCOUNTER 2017-01-28 21:09 | Emergency (ER) | payer OTHER ==
[~2017-01-28] VITALS: Ht 165.1 cm; Wt 79.8 kg
[~2017-01-28 21:09] MED LIST changes: +HYDR-971 PO; +NAPR-683 PO
[2017-01-28] MEDS ORDERED: ACETAMINOPHEN 500 MG TABLET PO ONE (21:45)
[2017-01-28] MEDS ORDERED: IV NORMAL SALINE 1000ML BAG 1,000 ML IV SCH (21:45)
[2017-01-28] MEDS ORDERED: ONDANSETRON ODT 4 MG TAB.RAPDIS. PO ONE (21:45)
[2017-01-28 21:54] LABS: POTASSIUM ISTAT 3.8 mmol/L (3.5-5.0)
[2017-01-28 23:00] VITALS: BP 103/57
[2017-01-29] MEDS ORDERED: ONDA4TAB10 SL (00:17)
--- NOTE | 2017-01-29 00:18 | PHYS DOC ---
Past Medical History Past Medical History: Other Additional Past Medical Histor: preeclampsia Past Surgical History: Cholecystectomy Alcohol Use: None Drug Use: None Adult General Chief Complaint Chief Complaint: NAUSEA/VOMITING/DIARRHA HPI HPI Patient is a 21 year old [f__sex] who presents with [] Review of Systems Review of Systems Constitutional: Denies fever or chills [] Eyes: Denies change in visual acuity, redness, or eye pain [] HENT: Denies nasal congestion or sore throat [] Respiratory: Denies cough or shortness of breath [] Cardiovascular: No additional information not addressed in HPI [] GI: Denies abdominal pain, nausea, vomiting, bloody stools or diarrhea [] : Denies dysuria or hematuria [] Musculoskeletal: Denies back pain or joint pain [] Integument: Denies rash or skin lesions [] Neurologic: Denies headache, focal weakness or sensory changes [] Endocrine: Denies polyuria or polydipsia [] All other systems were reviewed and found to be within normal limits, except as documented in this note. Current Medications Current Medications Current Medications Medications (Trade) Dose Ordered Sig/Kenia Start Time Stop Time Status Last Admin Dose Admin Acetaminophen (Tylenol) 1,000 mg 1X ONCE 01/28/17 21:45 01/28/17 21:46 DC 01/28/17 21:48 1,000 MG Ondansetron HCl (Zofran Odt) 4 mg 1X ONCE 01/28/17 21:45 01/28/17 21:46 DC 01/28/17 21:48 4 MG Sodium Chloride 1,000 ml @ 999 mls/hr Q1H1M 01/28/17 21:45 01/28/17 21:48 999 MLS/HR Allergies Allergies Allergies Coded Allergies Type Severity Reaction Last Updated Verified escitalopram Allergy Intermediate 06/16/16 No Physical Exam Physical Exam Constitutional: Well developed, well nourished, no acute distress, non-toxic appearance. [] HENT: Normocephalic, atraumatic, bilateral external ears normal, oropharynx moist, no oral exudates, nose normal. [] Eyes: PERRLA, EOMI, conjunctiva normal, no discharge. [] Neck: Normal range of motion, no tenderness, supple, no stridor. [] Cardiovascular:Heart rate regular rhythm, no murmur [] Lungs & Thorax: Bilateral breath sounds clear to auscultation [] Abdomen: Bowel sounds normal, soft, no tenderness, no masses, no pulsatile masses. [] Skin: Warm, dry, no erythema, no rash. [] Back: No tenderness, no CVA tenderness. [] Extremities: No tenderness, no cyanosis, no clubbing, ROM intact, no edema. [] Neurologic: Alert and oriented X 3, normal motor function, normal sensory function, no focal deficits noted. [] Psychologic: Affect normal, judgement normal, mood normal. [] Current Patient Data Vital Signs Vital Signs Date Time Temp Pulse Resp B/P (MAP) Pulse Ox O2 Delivery O2 Flow Rate FiO2 01/28/17 21:35 98.7 113 16 118/64 (82) 96 Room Air 98.7 Lab Values Laboratory Tests Test 01/28/17 21:46 01/28/17 21:47 POC Urine HCG, Qualitative Hcg negative (Negative) POC Hemoglobin 14.3 g/dL (12-15) POC Hematocrit 42 % (36-40) H POC Sodium 141 mmol/L (135-145) POC Potassium 3.8 mmol/L (3.5-5.0) POC Chloride 107 mmol/L (98-110) POC Total CO2 22 mmol/L (23-32) L Anion Gap 17 mmol/L (6-14) H POC Blood Urea Nitrogen 10 mg/dL (8-26) POC Creatinine 0.6 mg/dL (0.5-1.4) Glucose Level 92 mg/dL (70-99) POC Ionized Calcium (Kelvin) 1.17 mmol/L (1.13-1.32) Laboratory Tests 01/28/17 21:47 EKG EKG [] Radiology/Procedures Radiology/Procedures [] Course & Med Decision Making Course & Med Decision Making Pertinent Labs and Imaging studies reviewed. (See chart for details) [] Dragon Disclaimer Dragon Disclaimer This electronic medical record was generated, in whole or in part, using a voice recognition dictation system. Departure Departure Impression: Primary Impression: Viral syndrome Additional Impression: Nausea & vomiting Disposition: 01 HOME, SELF-CARE Condition: IMPROVED Referrals: NO PCP (PCP) Patient Instructions: Viral Syndrome Additional Instructions: You have a viral syndrome which is possibly influenza. Rest and drink plenty of fluids. Use Zofran under your tongue every 4 hours as needed for nausea and vomiting. Take Tylenol every 4 hours and ibuprofen every 6 hours as needed for fever and aches and pains. Viral syndromes are self-limiting which means they get better on their own with supportive care. However, it does take time for your symptoms to resolve. Influenza can often last 4-5 days so expect this is a possibility and follow-up with your doctor in 1-2 days. Return immediately for new severe or worsening symptoms Scripts Ondansetron (ZOFRAN ODT) 4 Mg Tab.rapdis 1 TAB SL Q4HRS Y for VOMITING, #15 TAB Prov: MARGI JOHNSON MD 01/29/17 Problem Qualifiers MARGI JOHNSON MD Jan 29, 2017 00:18
== END 2017-01-29 00:28 | disposition home or self-care (01) ==
LOC: ER 21:09
DX: B34.9 Viral infection, unspecified (principal); R11.2 Nausea with vomiting, unspecified; Z88.8 Allergy status to other drugs, medicaments and biological substances
CPT/HCPCS: 36415; 80047; 81025; 85014; 85018; 96360; 99284; J7030; Q0162

== ENCOUNTER 2017-05-05 23:33 | Emergency (ER) | payer OTHER ==
[2017-05-05] MEDS: IBUPROFEN 800 MG TABLET. PO ×2 (23:52)
[2017-05-05] MEDS: ACETAMINOPHEN 325 MG TABLET. PO ×2 (23:52)
== END 2017-05-05 23:57 | disposition home or self-care (01) ==
LOC: ER 23:57
DX: R05 Cough (principal); R50.9 Fever, unspecified; J02.9 Acute pharyngitis, unspecified; J34.89 Other specified disorders of nose and nasal sinuses; Z88.8 Allergy status to other drugs, medicaments and biological substances
CPT/HCPCS: 99283

== ENCOUNTER 2017-08-13 17:04 | Emergency (ER) | payer OTHER ==
[2017-08-13 17:30] LABS: URINE HCG POC HCG NEGATIVE (Negative)
[2017-08-13 18:03] LABS: ADD MAN DIFF? NO
[2017-08-13 18:05] LABS: BASO % 0 % (0-3); EOS # 0.1 x10^3/uL (0.0-0.7); EOS % 1 % (0-3); HEMOGLOBIN 13.4 g/dL (12.0-15.5); LYMPH # 2.2 x10^3/uL (1.0-4.8); LYMPH % 27 % (24-48); MEAN CORPUSCULAR HEMOGLOBIN 31 pg (25-35); MEAN CORPUSCULAR HGB CONC 34 g/dL (31-37); MEAN CORPUSCULAR VOLUME 89 fL (79-100); MONO # 0.6 x10^3/uL (0.0-1.1); MONO % 7 % (0-9); NEUT # 5.3 x10^3uL (1.8-7.7); NEUT % 65 % (31-73); PLATELET COUNT 229 x10^3/uL (140-400); RED BLOOD COUNT 4.38 x10^6/uL (3.50-5.40); WHITE BLOOD COUNT 8.2 x10^3/uL (4.0-11.0)
[2017-08-13 18:07] LABS: BILIRUBIN,URINE NEGATIVE (NEG); CLARITY,URINE CLEAR; COLOR,URINE YELLOW; GLUCOSE,URINE NEGATIVE (NEG); NITRITE,URINE NEGATIVE (NEG); PROTEIN,URINE NEGATIVE (NEG-TRACE); UROBILINOGEN,URINE 0.2 mg/dL (0.2 mg/dL)
[2017-08-13 18:14] LABS: ANION GAP 5 (6-14); BLOOD UREA NITROGEN 10 mg/dL (7-20); BUN/CREATININE RATIO 14 (6-20); CALCIUM 9.7 mg/dL (8.5-10.1); CARBON DIOXIDE 30 mmol/L (21-32); CHLORIDE 104 mmol/L (98-107); CREATININE 0.7 mg/dL (0.6-1.0); GFR 106.7; GLUCOSE 91 mg/dL (70-99); SODIUM 139 mmol/L (136-145)
[2017-08-13 18:20] LABS: ALBUMIN/GLOBULIN RATIO 1.1 (1.0-1.7); ALK PHOS 53 U/L (46-116); ALT (SGPT) 21 U/L (14-59); AST (SGOT) 15 U/L (15-37); BACTERIA,URINE FEW /HPF (0-FEW); RBC,URINE 0 /HPF (0-2); SQUAMOUS EPITHELIAL CELL,UR MOD /LPF; TOTAL BILIRUBIN 0.3 mg/dL (0.2-1.0); TOTAL PROTEIN 7.7 g/dL (6.4-8.2); WBC,URINE OCC /HPF (0-4)
[2017-08-13] MEDS: MORPHINE SULFATE 10 MG/ML VIAL. IV (18:30)
[2017-08-13] MEDS ORDERED: CONTRAST GIVEN. MC (19:15)
[2017-08-13] MEDS: ONDANSETRON PF 4 MG/2 ML VIAL. IV (19:30)
[2017-08-13] MEDS: IOHEXOL 300 MG/ML 100ML VIAL. IV (19:58)
[2017-08-15 14:23] LABS: CHLAMYDIA PROBE Negative (Negative); GC PROBE Negative (Negative)
== END 2017-08-13 20:13 | disposition home or self-care (01) ==
LOC: ER 17:04
DX: N93.9 Abnormal uterine and vaginal bleeding, unspecified (principal); R10.30 Lower abdominal pain, unspecified; R11.0 Nausea; Z90.49 Acquired absence of other specified parts of digestive tract; Z88.8 Allergy status to other drugs, medicaments and biological substances
CPT/HCPCS: 36415; 74177; 76856; 80053; 81001; 81025; 85025; 87491; 87591; 96374; 96375; 99285-25; J2270; J2405; Q0111; Q9967

== ENCOUNTER 2018-07-22 16:58 | Observation (INO) | payer OTHER, SELFPAY ==
[2017-08-13 20:14] VITALS: BP 105/67
[~2018-07-22 16:58] MED LIST changes: +HYDR-3164 PO; -HYDR-971 PO; +IBUP-1060 PO; +ONDA4TAB10 SL; +PRED20TA PO
[2018-07-22 18:08] LABS: BILIRUBIN,URINE NEGATIVE (NEG); CLARITY,URINE CLEAR; COLOR,URINE YELLOW; NITRITE,URINE NEGATIVE (NEG); PROTEIN,URINE NEGATIVE (NEG-TRACE); UROBILINOGEN,URINE 0.2 mg/dL (0.2 mg/dL)
[2018-07-22 18:21] LABS: BACTERIA,URINE FEW /HPF (0-FEW); RBC,URINE 0 /HPF (0-2); SQUAMOUS EPITHELIAL CELL,UR FEW /LPF
[2018-07-22] MEDS ORDERED: hydrOXYzine PAMOATE 25 MG CAPSULE PO PRN (18:30)
== END 2018-07-22 18:38 | disposition home or self-care (01) ==
LOC: 3 SO LND 16:58
PROVIDERS: ADMIT Specialist; ATTEND Specialist
DX: O26.892 Other specified pregnancy related conditions, second trimester (principal); R10.30 Lower abdominal pain, unspecified; N89.8 Other specified noninflammatory disorders of vagina; Z3A.21 21 weeks gestation of pregnancy
CPT/HCPCS: 81001; G0378; G0379; Q0177

== ENCOUNTER 2018-10-03 16:34 | Observation (INO) | payer OTHER ==
[2017-08-13 20:14] VITALS: BP 105/67
[2018-10-03] MEDS ORDERED: IV RINGERS,LACTATED 1000ML 1,000 ML IV SCH (17:04)
[2018-10-03 17:10] LABS: BILIRUBIN,URINE NEGATIVE (NEG); CLARITY,URINE CLEAR; COLOR,URINE AMBER; NITRITE,URINE NEGATIVE (NEG); PH,URINE 5.5; PROTEIN,URINE NEGATIVE (NEG-TRACE); UROBILINOGEN,URINE 0.2 mg/dL (0.2 mg/dL)
[2018-10-03 17:18] LABS: BACTERIA,URINE 0 /HPF (0-FEW); BARBITURATES NEG (NEG); BENZODIAZEPINES NEG (NEG); CANNABINOIDS POS (NEG); COCAINE NEG (NEG); METHADONE NEG (NEG); OPIATES NEG (NEG); PHENCYCLIDINE NEG (NEG); RBC,URINE 0 /HPF (0-2); SQUAMOUS EPITHELIAL CELL,UR OCC /LPF; WBC,URINE OCC /HPF (0-4)
[2018-10-03 17:20] LABS: AMPHETAMINE/METHAMPHETAMINE NEG (NEG)
== END 2018-10-03 19:10 | disposition home or self-care (01) ==
LOC: 3 SO LND 16:34
PROVIDERS: ADMIT Specialist; ATTEND Specialist
DX: O26.853 Spotting complicating pregnancy, third trimester (principal); O26.893 Other specified pregnancy related conditions, third trimester; R10.9 Unspecified abdominal pain; Z3A.31 31 weeks gestation of pregnancy
CPT/HCPCS: 80307; 81001; G0378; G0379; J7120

== ENCOUNTER 2018-10-24 18:29 | Observation (INO) | payer OTHER ==
[2017-08-13 20:14] VITALS: BP 105/67
[2018-10-24] MEDS ORDERED: IV RINGERS,LACTATED 1000ML 1,000 ML IV SCH (19:10)
[2018-10-24 20:16] LABS: BILIRUBIN,URINE NEGATIVE (NEG); CLARITY,URINE CLEAR; COLOR,URINE YELLOW; NITRITE,URINE NEGATIVE (NEG); PROTEIN,URINE NEGATIVE (NEG-TRACE); UROBILINOGEN,URINE 0.2 mg/dL (0.2 mg/dL)
[2018-10-24 20:25] LABS: AMORPHOUS SEDIMENT,UR PRESENT /HPF; BACTERIA,URINE FEW /HPF (0-FEW); BARBITURATES NEG (NEG); BENZODIAZEPINES NEG (NEG); CANNABINOIDS POS (NEG); COCAINE NEG (NEG); METHADONE NEG (NEG); OPIATES NEG (NEG); PHENCYCLIDINE NEG (NEG); RBC,URINE 0 /HPF (0-2); SQUAMOUS EPITHELIAL CELL,UR FEW /LPF
[2018-10-24 20:27] LABS: AMPHETAMINE/METHAMPHETAMINE NEG (NEG)
[2018-10-24] MEDS ORDERED: hydrOXYzine 25 MG TABLET PO PRN (20:45)
== END 2018-10-24 21:35 | disposition home or self-care (01) ==
LOC: 3 SO LND 18:29
PROVIDERS: ADMIT Specialist; ATTEND Specialist
DX: O26.893 Other specified pregnancy related conditions, third trimester (principal); R10.2 Pelvic and perineal pain; O99.89 Other specified diseases and conditions complicating pregnancy, childbirth and the puerperium; M54.9 Dorsalgia, unspecified; Z3A.33 33 weeks gestation of pregnancy
CPT/HCPCS: 80307; 81001; G0378; G0379

== ENCOUNTER 2018-11-06 12:17 | Observation (INO) | payer OTHER ==
[2017-08-13 20:14] VITALS: BP 105/67
[2018-11-06 13:09] LABS: BILIRUBIN,URINE NEGATIVE (NEG); CLARITY,URINE CLEAR; COLOR,URINE YELLOW; NITRITE,URINE NEGATIVE (NEG); PROTEIN,URINE NEGATIVE (NEG-TRACE); UROBILINOGEN,URINE 0.2 mg/dL (0.2 mg/dL)
[2018-11-06 13:19] LABS: AMNIO PT NEGATIVE
[2018-11-06 13:25] LABS: SQUAMOUS EPITHELIAL CELL,UR MOD /LPF
[2018-11-06 13:26] LABS: BACTERIA,URINE 0 /HPF (0-FEW); RBC,URINE 0 /HPF (0-2)
== END 2018-11-06 14:10 | disposition home or self-care (01) ==
LOC: 3 SO LND 12:17
PROVIDERS: ADMIT Specialist; ATTEND Specialist
DX: O42.913 Preterm premature rupture of membranes, unspecified as to length of time between rupture and onset of labor, third trimester (principal); O62.9 Abnormality of forces of labor, unspecified; Z3A.35 35 weeks gestation of pregnancy
CPT/HCPCS: 36415; 81001; 84112; G0378; G0379

== ENCOUNTER 2019-04-01 10:07 | Emergency (ER) | payer OTHER ==
[2019-04-01] MEDS ORDERED: fentaNYL PF VIAL 100 MCG/2 ML VIAL IV ONE (10:30)
[2019-04-01] MEDS ORDERED: DICYCLOMINE HCL 10 MG CAPSULE PO STA (10:30)
[2019-04-01] MEDS ORDERED: IV NORMAL SALINE 1000ML BAG 1,000 ML IV ONE (10:30)
[2019-04-01] MEDS ORDERED: ONDANSETRON PF 4 MG/2 ML VIAL. IV ONE (10:30)
[2019-04-01] MEDS ORDERED: ONDANSETRON PF 4 MG/2 ML VIAL. ONE (10:35)
[2019-04-01] MEDS ORDERED: DICYCLOMINE 20 MG/2 ML AMPUL. IM ONE (10:35)
[2019-04-01] MEDS ORDERED: fentaNYL PF VIAL 100 MCG/2 ML VIAL ONE (10:35)
--- NOTE | 2019-04-01 10:46 | PHYS DOC ---
Past Medical History Past Medical History: Ovarian Cyst Additional Past Medical Histor: preeclampsia (MARGI WOLFE APRN) Past Surgical History: Cholecystectomy (MARGI WOLFE APRN) Alcohol Use: None Drug Use: None (MARGI WOLFE APRN) Adult General Chief Complaint Chief Complaint: ABDOMINAL PAIN HPI HPI Patient is a 23 year old female who presents with bilateral upper abdominal pain with probable 4 days. The patient states that she's had nausea, vomiting, diarrhea last 4 days. Patient also states that she was running 101 fever 2 days ago. The patient rates her pain 8 out of 10 in severity and describes as cramping pain. She states her last menstrual was the 08 of March. (MARGI WOLFE APRN) Review of Systems Review of Systems Constitutional: Denies fever or chills [] Eyes: Denies change in visual acuity, redness, or eye pain [] HENT: Denies nasal congestion or sore throat [] Respiratory: Denies cough or shortness of breath [] Cardiovascular: No additional information not addressed in HPI [] GI: Reports abdominal pain, nausea, vomiting, and diarrhea. : Denies dysuria or hematuria, and vaginal bleeding. Musculoskeletal: Denies back pain or joint pain [] Integument: Denies rash or skin lesions [] Neurologic: Denies headache, focal weakness or sensory changes [] Endocrine: Denies polyuria or polydipsia [] Complete systems were reviewed and found to be within normal limits, except as documented in this note. (MARGI WOLFE APRN) Current Medications Current Medications Current Medications Medications (Trade) Dose Ordered Sig/Kenia Start Time Stop Time Status Last Admin Dose Admin Dicyclomine HCl (Bentyl) 20 mg STK-MED ONCE 04/01/19 10:35 04/01/19 10:35 DC Fentanyl Citrate (Fentanyl 2ml Vial) 100 mcg STK-MED ONCE 04/01/19 10:35 04/01/19 10:36 DC Ondansetron HCl (Zofran) 4 mg STK-MED ONCE 04/01/19 10:35 04/01/19 10:35 DC Potassium Chloride (Klor-Con) 20 meq 1X STAT 04/01/19 12:44 04/01/19 12:47 DC 04/01/19 12:50 20 MEQ Sodium Chloride 1,000 ml @ 1,000 mls/hr 1X ONCE 04/01/19 10:30 04/01/19 11:29 DC 04/01/19 10:49 1,000 MLS/HR (CAYETANO ZAYAS MD) Allergies Allergies Allergies Coded Allergies Type Severity Reaction Last Updated Verified escitalopram Allergy Intermediate 04/01/19 No (CAYETANO ZAYAS MD) Physical Exam Physical Exam Constitutional: Well developed, well nourished, no acute distress, non-toxic appearance. [] HENT: Normocephalic, atraumatic, bilateral external ears normal, oropharynx moist, no oral exudates, nose normal. [] Eyes: PERRLA, EOMI, conjunctiva normal, no discharge. [] Neck: Normal range of motion, no tenderness, supple, no stridor. [] Cardiovascular:Heart rate regular rhythm, no murmur [] Lungs & Thorax: Bilateral breath sounds clear to auscultation [] Abdomen: Bowel sounds normal, soft, bilateral upper abdominal tenderness, no masses, no pulsatile masses. [] Skin: Warm, dry, no erythema, no rash. [] Neurologic: Alert and oriented X 3, normal motor function, normal sensory function, no focal deficits noted. [] Psychologic: Affect normal, judgement normal, mood normal. [] (MARGI WOLFE APRN) Current Patient Data Vital Signs Vital Signs Date Time Temp Pulse Resp B/P (MAP) Pulse Ox O2 Delivery O2 Flow Rate FiO2 04/01/19 12:45 89 14 112/78 (89) 97 04/01/19 10:15 97.7 97.7 (CAYETANO ZAYAS MD) Lab Values Laboratory Tests Test 04/01/19 09:35 04/01/19 10:08 04/01/19 10:13 Urine Collection Type Unknown Urine Color Raquel Urine Clarity Clear Urine pH 6.0 Urine Specific Lafferty >=1.030 Urine Protein 30 mg/dL (NEG-TRACE) Urine Glucose (UA) Negative mg/dL (NEG) Urine Ketones (Stick) >=80 mg/dL (NEG) Urine Blood Negative (NEG) Urine Nitrite Negative (NEG) Urine Bilirubin Small (NEG) Urine Urobilinogen Dipstick 0.2 mg/dL (0.2 mg/dL) Urine Leukocyte Esterase Negative (NEG) Urine RBC 0 /HPF (0-2) Urine WBC Occ /HPF (0-4) Urine Squamous Epithelial Cells Mod /LPF Urine Bacteria 0 /HPF (0-FEW) Urine Mucus Marked /LPF White Blood Count 5.6 x10^3/uL (4.0-11.0) Red Blood Count 4.46 x10^6/uL (3.50-5.40) Hemoglobin 13.4 g/dL (12.0-15.5) Hematocrit 39.8 % (36.0-47.0) Mean Corpuscular Volume 89 fL (79-100) Mean Corpuscular Hemoglobin 30 pg (25-35) Mean Corpuscular Hemoglobin Concent 34 g/dL (31-37) Red Cell Distribution Width 12.8 % (11.5-14.5) Platelet Count 210 x10^3/uL (140-400) Neutrophils (%) (Auto) 61 % (31-73) Lymphocytes (%) (Auto) 30 % (24-48) Monocytes (%) (Auto) 7 % (0-9) Eosinophils (%) (Auto) 1 % (0-3) Basophils (%) (Auto) 1 % (0-3) Neutrophils # (Auto) 3.5 x10^3/uL (1.8-7.7) Lymphocytes # (Auto) 1.7 x10^3/uL (1.0-4.8) Monocytes # (Auto) 0.4 x10^3/uL (0.0-1.1) Eosinophils # (Auto) 0.0 x10^3/uL (0.0-0.7) Basophils # (Auto) 0.0 x10^3/uL (0.0-0.2) Maternal Serum HCG Beta Subunit 76 mIU/mL (0-5) H Sodium Level 142 mmol/L (136-145) Potassium Level 3.2 mmol/L (3.5-5.1) L Chloride Level 104 mmol/L (98-107) Carbon Dioxide Level 24 mmol/L (21-32) Anion Gap 14 (6-14) Blood Urea Nitrogen 10 mg/dL (7-20) Creatinine 0.7 mg/dL (0.6-1.0) Estimated GFR (Cockcroft-Gault) 104.6 BUN/Creatinine Ratio 14 (6-20) Glucose Level 101 mg/dL (70-99) H Calcium Level 9.6 mg/dL (8.5-10.1) Total Bilirubin 0.4 mg/dL (0.2-1.0) Aspartate Amino Transferase (AST) 15 U/L (15-37) Alanine Aminotransferase (ALT) 17 U/L (14-59) Alkaline Phosphatase 43 U/L (46-116) L Total Protein 7.8 g/dL (6.4-8.2) Albumin 4.3 g/dL (3.4-5.0) Albumin/Globulin Ratio 1.2 (1.0-1.7) Lipase 84 U/L (73-393) POC Urine HCG, Qualitative Hcg positive (Negative) Laboratory Tests 04/01/19 10:08 Laboratory Tests 04/01/19 10:08 (CAYETANO ZAYAS MD) EKG EKG [] (MARGI WOLFE APRN) Radiology/Procedures Radiology/Procedures [][facility] [address] [place] [address] IMAGING REPORT Signed PATIENT: RACHEAL ROWE ACCOUNT: [id number] : 1995 LOCATION: ER AGE: 23 SEX: F EXAM STATUS: REG ER ORD. PHYSICIAN: MARGI WOLFE APRN REASON: abdominal pain PROCEDURE: OB <14 WKS W/TV Exam performed: OB Ultrasound first trimester. Indication: Abdominal pain Date of Service: 04/01/2019. Comparison: None available Technique: Transabdominal and transvaginal Findings: The uterus is anteverted and measures 9.5 x 6.9 x 4.5 cm. The endometrial stripe measures 12.0 mm. No intrauterine gestational sac or pole is identified. Both ovaries are nonvisualized. There is no solid or cystic mass lesion. No free fluid Impression: 1. Normal uterus with nonvisualized ovaries. No evidence of intrauterine seen. Correlate with quantitative beta-hCG level and if indicated short-term interval follow-up ultrasound exam may be obtained to rule out possibility of ectopic Electronically signed by: Yuli Osuna MD (04/01/2019 12:18 PM) [facility] DICTATED and SIGNED BY: YULI OSUNA MD DATE: 04/01/19 4670 (MARGI WOLFE APRN) Course & Med Decision Making Course & Med Decision Making Pertinent Labs and Imaging studies reviewed. (See chart for details) Will get test (+), UA, and labs. Will also get ultrasound. Will have follow up with VOCATIONAL COORDINATOR for further workup. (MARGI WOLFE APRN) Course & Med Decision Making Staff Physician Addendum: I was working in the ER during the course of this patient's visit. I was a vailable for consultation as needed, but I was not directly involved in the care of this patient. (CAYETANO ZAYAS MD) Dragon Disclaimer Dragon Disclaimer This electronic medical record was generated, in whole or in part, using a voice recognition dictation system. (MARGI WOLFE APRN) Departure Departure Impression: Primary Impression: Abdominal pain during in first trimester Additional Impression: Disposition: HOME, SELF-CARE Condition: STABLE Referrals: NO PCP (PCP) MARGI VALLECILLO MD Patient Instructions: ABCs of , Abdominal Pain During Additional Instructions: Thank you for visiting [facility]. We appreciate you trusting us with your care. If any additional problems come up don't hesitate to return to visit us. Please follow up with your primary care provider so they can plan additional care if needed and know about the problem that you had. If symptoms worsen come back to the Emergency Department. Any concerning symptoms that start such as chest pain, shortness of air, weakness or numbness on one side of the body, running high fevers or any other concerning symptoms return to the ER. Please follow up with VOCATIONAL COORDINATOR for further care. Scripts Ondansetron (ONDANSETRON ODT) 4 Mg Tab.rapdis 1 TAB PO PRN Q6-8HRS PRN for NAUSEA, #16 TAB Prov: MARGI WOLFE APRN 04/01/19 Problem Qualifiers Additional Impression: Weeks of gestation: less than 8 weeks Qualified Codes: Z3A.01 - Less than 8 weeks gestation of MARGI WOLFE APRN Apr 01, 2019 10:46 CAYETANO ZAYAS MD Apr 01, 2019 14:58
[2019-04-01 10:54] LABS: BASO % 1 % (0-3); EOS % 1 % (0-3); HEMATOCRIT 39.8 % (36.0-47.0); HEMOGLOBIN 13.4 g/dL (12.0-15.5); LYMPH # 1.7 x10^3/uL (1.0-4.8); LYMPH % 30 % (24-48); MEAN CORPUSCULAR HEMOGLOBIN 30 pg (25-35); MEAN CORPUSCULAR HGB CONC 34 g/dL (31-37); MEAN CORPUSCULAR VOLUME 89 fL (79-100); MONO # 0.4 x10^3/uL (0.0-1.1); MONO % 7 % (0-9); NEUT # 3.5 x10^3/uL (1.8-7.7); NEUT % 61 % (31-73); PLATELET COUNT 210 x10^3/uL (140-400); RED BLOOD COUNT 4.46 x10^6/uL (3.50-5.40); RED CELL DISTRIBUTION WIDTH 12.8 % (11.5-14.5); WHITE BLOOD COUNT 5.6 x10^3/uL (4.0-11.0)
[2019-04-01 10:55] LABS: BILIRUBIN,URINE SMALL (NEG); CLARITY,URINE CLEAR; COLOR,URINE AMBER; NITRITE,URINE NEGATIVE (NEG); PROTEIN,URINE 30 mg/dL (NEG-TRACE); UROBILINOGEN,URINE 0.2 mg/dL (0.2 mg/dL)
[2019-04-01 11:03] LABS: CALCIUM 9.6 mg/dL (8.5-10.1); CREATININE 0.7 mg/dL (0.6-1.0); GFR 104.6; POTASSIUM 3.2 mmol/L (3.5-5.1)
[2019-04-01 11:07] LABS: BACTERIA,URINE 0 /HPF (0-FEW); RBC,URINE 0 /HPF (0-2); SQUAMOUS EPITHELIAL CELL,UR MOD /LPF; WBC,URINE OCC /HPF (0-4)
[2019-04-01 11:11] LABS: ALBUMIN 4.3 g/dL (3.4-5.0); ALBUMIN/GLOBULIN RATIO 1.2 (1.0-1.7); TOTAL BILIRUBIN 0.4 mg/dL (0.2-1.0); TOTAL PROTEIN 7.8 g/dL (6.4-8.2)
--- NOTE | 2019-04-01 12:21 | RAD ---
Exam performed: OB Ultrasound first trimester. Indication: Abdominal pain Date of Service: 04/01/2019. Comparison: None available Technique: Transabdominal and transvaginal Findings: The uterus is anteverted and measures 9.5 x 6.9 x 4.5 cm. The endometrial stripe measures 12.0 mm. No intrauterine gestational sac or pole is identified. Both ovaries are nonvisualized. There is no solid or cystic mass lesion. No free fluid Impression: 1. Normal uterus with nonvisualized ovaries. No evidence of intrauterine seen. Correlate with quantitative beta-hCG level and if indicated short-term interval follow-up ultrasound exam may be obtained to rule out possibility of ectopic Electronically signed by: Yuli Osuna MD (04/01/2019 12:18 PM) [facility]
[2019-04-01] MEDS ORDERED: ONDA4TAB12 PO (12:41)
[2019-04-01] MEDS ORDERED: POTASSIUM CHLORIDE 20 MEQ TABLET.ER. PO STA (12:44)
[2019-04-01 12:45] VITALS: BP 112/78
== END 2019-04-01 12:53 | disposition home or self-care (01) ==
LOC: ER 10:07
DX: O26.891 Other specified pregnancy related conditions, first trimester (principal); R10.11 Right upper quadrant pain; R10.12 Left upper quadrant pain; O21.9 Vomiting of pregnancy, unspecified; Z90.49 Acquired absence of other specified parts of digestive tract; Z3A.01 Less than 8 weeks gestation of pregnancy; Z88.8 Allergy status to other drugs, medicaments and biological substances
CPT/HCPCS: 36415; 76801; 76817; 80053; 81001; 81025; 83690; 84702; 85025; 96361; 96374; 99285; J2405; J7030

== ENCOUNTER 2019-04-19 18:06 | Emergency (ER) | payer OTHER ==
[~2019-04-19 18:06] MED LIST changes: +ONDA4TAB12 PO
== END 2019-04-19 18:37 | disposition left against medical advice (07) ==
LOC: ER 18:06
DX: O21.9 Vomiting of pregnancy, unspecified (principal); R42 Dizziness and giddiness; Z3A.00 Weeks of gestation of pregnancy not specified; Z53.21 Procedure and treatment not carried out due to patient leaving prior to being seen by health care provider
CPT/HCPCS: 81025

== ENCOUNTER 2019-05-04 13:39 | Emergency (ER) | payer OTHER ==
[2019-05-04 14:24] LABS: U PREG PATIENT POSITIVE (NEG)
== END 2019-05-04 14:41 | disposition left against medical advice (07) ==
LOC: ER 13:39
DX: R11.2 Nausea with vomiting, unspecified (principal); R19.7 Diarrhea, unspecified; R10.9 Unspecified abdominal pain; Z53.21 Procedure and treatment not carried out due to patient leaving prior to being seen by health care provider
CPT/HCPCS: 81025

== ENCOUNTER 2019-07-01 10:51 | Emergency (ER) | payer OTHER ==
[~2019-07-01] VITALS: Ht 165.1 cm; Wt 68.6 kg
[2019-07-01 11:05] VITALS: BP 114/56
[2019-07-01] MEDS ORDERED: IV NORMAL SALINE 1000ML BAG 1,000 ML IV SCH (11:35)
[2019-07-01 11:59] LABS: BILIRUBIN,URINE NEGATIVE (NEG); CLARITY,URINE CLEAR; COLOR,URINE AMBER; NITRITE,URINE NEGATIVE (NEG); PROTEIN,URINE 30 mg/dL (NEG-TRACE); UROBILINOGEN,URINE 0.2 mg/dL (0.2 mg/dL)
[2019-07-01 12:01] LABS: BASO % 0 % (0-3); EOS % 1 % (0-3); HEMATOCRIT 37.1 % (36.0-47.0); HEMOGLOBIN 12.5 g/dL (12.0-15.5); LYMPH # 1.2 x10^3/uL (1.0-4.8); LYMPH % 19 % (24-48); MEAN CORPUSCULAR HEMOGLOBIN 30 pg (25-35); MEAN CORPUSCULAR HGB CONC 34 g/dL (31-37); MEAN CORPUSCULAR VOLUME 90 fL (79-100); MONO # 0.3 x10^3/uL (0.0-1.1); MONO % 5 % (0-9); NEUT # 4.9 x10^3/uL (1.8-7.7); NEUT % 75 % (31-73); PLATELET COUNT 197 x10^3/uL (140-400); RED BLOOD COUNT 4.11 x10^6/uL (3.50-5.40); RED CELL DISTRIBUTION WIDTH 12.9 % (11.5-14.5); WHITE BLOOD COUNT 6.5 x10^3/uL (4.0-11.0)
--- NOTE | 2019-07-01 12:02 | PHYS DOC ---
Past Medical History Past Medical History: Ovarian Cyst Additional Past Medical Histor: preeclampsia Past Surgical History: Cholecystectomy Smoking Status: Never Smoker Alcohol Use: None Drug Use: None General Adult EDM: Chief Complaint: VAGINAL BLEEDING HPI: HPI: Patient is a 23 year old female with history of preeclampsia who presents with planing of vaginal bleeding in . Patient is G6, at 18 weeks of gestation complaining of passing test 4 days ago and intermittent vaginal spotting and passing large blood clots this morning. Patient complaining of lower abdominal cramping pain for the last 4 days and rated her pain 6/10. Patient denies chest pain, shortness of breath, fever and chills, dizziness, nausea and vomiting, vaginal discharge, recent intercourse. Patient was seen by her BOATSWAINS MATE 2 weeks ago. Patient has blood type of O+. Review of Systems: Review of Systems: Constitutional: Denies fever or chills. [] Eyes: Denies change in visual acuity. [] HENT: Denies nasal congestion or sore throat. [] Respiratory: Denies cough or shortness of breath. [] Cardiovascular: Denies chest pain or edema. [] GI: Denies nausea, vomiting, bloody stools or diarrhea, reports abdominal pain. [] : Denies dysuria, reports vaginal bleeding. [] Musculoskeletal: Denies back pain or joint pain. [] Integument: Denies rash. [] Neurologic: Denies headache, focal weakness or sensory changes. [] Endocrine: Denies polyuria or polydipsia. [] Lymphatic: Denies swollen glands. [] Psychiatric: Denies depression or anxiety. [] Heart Score: Risk Factors: Risk Factors: DM, Current or recent (<one month) smoker, HTN, HLP, family history of CAD, obesity. Risk Scores: Score 0 - 3: 2.5% MACE over next 6 weeks - Discharge Home Score 4 - 6: 20.3% MACE over next 6 weeks - Admit for Clinical Observation Score 7 - 10: 72.7% MACE over next 6 weeks - Early Invasive Strategies Current Medications: Current Medications Medications (Trade) Dose Ordered Sig/Kenia Start Time Stop Time Status Last Admin Dose Admin Sodium Chloride 1,000 ml @ 1,000 mls/hr Q1H 07/01/19 11:35 07/01/19 12:34 UNV Allergies: Allergies: Allergies Coded Allergies Type Severity Reaction Last Updated Verified escitalopram Allergy Intermediate 04/01/19 No Physical Exam: PE: Constitutional: Well developed, well nourished, mild distress, non-toxic appearance. [] HENT: Normocephalic, atraumatic. Eyes: PERRLA, EOMI, conjunctiva normal, no discharge. [] Neck: Normal range of motion, no tenderness, supple, no stridor. [] Cardiovascular:Heart rate regular rhythm, no murmur [] Lungs & Thorax: Bilateral breath sounds clear to auscultation [] Abdomen: Bowel sounds normal, soft, no tenderness, no masses, no pulsatile masses. [] Skin: Warm, dry, no erythema, no rash. [] Back: No tenderness, no CVA tenderness. [] Extremities: No tenderness, no cyanosis, no clubbing, ROM intact, no edema. [] Neurologic: Alert and oriented X 3, no focal deficits noted. [] Psychologic: Affect normal, judgement normal, mood normal. [] Current Patient Data: Vital Signs: Vital Signs Date Time Temp Pulse Resp B/P (MAP) Pulse Ox O2 Delivery O2 Flow Rate FiO2 07/01/19 11:05 98.1 93 16 114/56 (75) 98 Room Air 98.1 EKG: EKG: [] Radiology/Procedures: Radiology/Procedures: [facility] [address] [place] [address] IMAGING REPORT Signed PATIENT: RACHEAL ROWE ACCOUNT: [id number] : 1995 LOCATION: ER AGE: 23 SEX: F EXAM STATUS: REG ER ORD. PHYSICIAN: GINA DE GUZMAN MD REASON: Vaginal bleeding, 18 weeks patient PROCEDURE: PREG MORE THAN OR EQ TO 14 WKS EXAM: Ultrasound OB Greater than 14 weeks INDICATION: 3 days of bleeding in second trimester . TECHNIQUE: Real-time obstetrical ultrasound was performed with permanent freeze-frame documentation. COMPARISON: 04/01/2019 oh OB ultrasound FINDINGS: POSITION: Transverse HEART RATE: 1 43 bpm ENEIDA: Subjectively normal. PLACENTA: Posterior, with margin lying 2.8 cm from the internal os. However, there is an additional 3.7 x 3.4 x 3.0 cm structure within a centimeter of the anterior aspect of the internal os that is isoechoic to the placenta and could represent an accessory (succenturiate) lobe of the placenta. CERVICAL LENGTH: 4.4 cm MATERNAL UTERUS: Unremarkable. MATERNAL ADNEXA: Unremarkable. Ovaries not well seen. AGE/DATES: Gestational Age by LMP: 18 weeks 0 days Gestation Age by US: 17 weeks 0 days EDC by LMP: December 02, 2019 EDC by US: December 09, 2019 WEIGHT: 170 grams +/- 25 grams PERCENTILE WEIGHT: Not estimated BIOMETRIC PARAMETERS: BPD: 3.7 cm corresponding with 17 weeks 3 days HC: 13.5 cm corresponding with 17 weeks 0 days AC: 11.1 cm corresponding with 16 weeks 6 days FL: 2.2 cm corresponding with 16 weeks 5 days IMPRESSION: 1. OB ultrasound demonstrating a single viable fetus in transverse position. 2. There may be a low lying accessory lobe of the placenta. 3. Estimated gestational age of 17 weeks 0 days and EDC of 12/09/2019. Electronically signed by: Tc Roy MD (07/01/2019 2:06 PM) [id number] DICTATED and SIGNED BY: TC ROY MD DATE: 07/01/19 1406 Course & Med Decision Making: Course & Med Decision Making Pertinent Labs and Imaging studies reviewed. (See chart for details) Evaluation of patient inertial 23-year-old female patient at 18 weeks of gestation with complaining of vaginal bleeding and abdominal pain. Patient had unremarkable vital sign and abdominal exam. Patient had unremarkable labs except for mild UTI. OB ultrasound showed intrauterine at 17 weeks of gestation with mild low-lying placenta with heart rate of 143. Patient was advised to have pelvic rest and follow-up with her BOATSWAINS MATE and return if concerns of bleeding. I've spoken with the patient and/or caregivers. I've explained the patient's condition, diagnosis and treatment plan based on information available to me at this time. I've answered the patient's and/or caregivers questions and addressed any concerns. The patient and/or caregivers have a good understanding the patient's diagnosis, condition and treatment plan as can be expected at this point. Vital signs have been stabilized. The patient's condition is stable for discharge from the emergency department. The patient will pursue further outpatient evaluation with her primary care provider or other designated consulting physician as outlined in the discharge instructions. Patient and/or caregivers are agreeable to this plan of care and follow-up instructions have been explained in detail. The patient and/or ca regivers have received these instructions in written format and expressed understanding of these discharge instructions. The patient and her caregivers are aware that if any significant change in condition or worsening of symptoms should prompt him to immediately return to this of the closest emergency department. If an emergent department is not readily available I would encourag e him to call 911. Sahara Disclaimer: Sahara Disclaimer: This electronic medical record was generated, in whole or in part, using a voice recognition dictation system. Departure Departure Impression: Primary Impression: Vaginal bleeding in patient at less than 20 weeks gestation Additional Impressions: Urinary tract infection affecting Low lying placenta with hemorrhage in second trimester, antepartum Disposition: HOME, SELF-CARE (At 1422) Condition: STABLE Referrals: NO PCP (PCP) Patient Instructions: - Urinary Tract Infection, Vaginal Bleeding During , Second Trimester Additional Instructions: Drink plenty of liquids Follow-up with your BOATSWAINS MATE physician in 2 or 3 days Return to ER if not getting better Thank you for visiting [facility]. We appreciate you trusting us with your care. If any additional problems come up don't hesitate to return to visit us. Please follow up with your primary care provider so they can plan additional care if needed and know about the problem that you had. If symptoms worsen come back to the Emergency Department. Any concerning symptoms that start such as chest pain, shortness of air, weakness or numbness on one side of the body, running high fevers or any other concerning symptoms return to the ER. Scripts Cephalexin (KEFLEX) 500 Mg Capsule 1 CAP PO Q8HRS, #21 CAP 0 Refills Prov: GINA DE GUZMAN MD 07/01/19 GINA DE GUZMAN MD Jul 01, 2019 12:02
[2019-07-01 12:07] LABS: BACTERIA,URINE FEW /HPF (0-FEW); RBC,URINE OCC /HPF (0-2)
[2019-07-01 12:08] LABS: SQUAMOUS EPITHELIAL CELL,UR MANY /LPF
[2019-07-01 12:13] LABS: CALCIUM 8.5 mg/dL (8.5-10.1); CREATININE 0.6 mg/dL (0.6-1.0); POTASSIUM 3.4 mmol/L (3.5-5.1)
[2019-07-01 12:22] LABS: ALBUMIN 3.2 g/dL (3.4-5.0); ALBUMIN/GLOBULIN RATIO 0.9 (1.0-1.7); TOTAL BILIRUBIN 0.4 mg/dL (0.2-1.0); TOTAL PROTEIN 6.8 g/dL (6.4-8.2)
--- NOTE | 2019-07-01 14:09 | RAD ---
EXAM: Ultrasound OB Greater than 14 weeks INDICATION: 3 days of bleeding in second trimester . TECHNIQUE: Real-time obstetrical ultrasound was performed with permanent freeze-frame documentation. COMPARISON: 04/01/2019 wa OB ultrasound FINDINGS: POSITION: Transverse HEART RATE: 1 43 bpm ENEIDA: Subjectively normal. PLACENTA: Posterior, with margin lying 2.8 cm from the internal os. However, there is an additional 3.7 x 3.4 x 3.0 cm structure within a centimeter of the anterior aspect of the internal os that is isoechoic to the placenta and could represent an accessory (succenturiate) lobe of the placenta. CERVICAL LENGTH: 4.4 cm MATERNAL UTERUS: Unremarkable. MATERNAL ADNEXA: Unremarkable. Ovaries not well seen. AGE/DATES: Gestational Age by LMP: 18 weeks 0 days Gestation Age by US: 17 weeks 0 days EDC by LMP: December 02, 2019 EDC by US: December 09, 2019 WEIGHT: 170 grams +/- 25 grams PERCENTILE WEIGHT: Not estimated BIOMETRIC PARAMETERS: BPD: 3.7 cm corresponding with 17 weeks 3 days HC: 13.5 cm corresponding with 17 weeks 0 days AC: 11.1 cm corresponding with 16 weeks 6 days FL: 2.2 cm corresponding with 16 weeks 5 days IMPRESSION: 1. OB ultrasound demonstrating a single viable fetus in transverse position. 2. There may be a low lying accessory lobe of the placenta. 3. Estimated gestational age of 17 weeks 0 days and EDC of 12/09/2019. Electronically signed by: Jonah Desai MD (07/01/2019 2:06 PM) [id number]
[2019-07-01] MEDS ORDERED: CEPH-264 PO (14:25)
== END 2019-07-01 14:55 | disposition home or self-care (01) ==
LOC: ER 10:51
DX: O44.52 Low lying placenta with hemorrhage, second trimester (principal); O23.42 Unspecified infection of urinary tract in pregnancy, second trimester; Z90.49 Acquired absence of other specified parts of digestive tract; Z88.8 Allergy status to other drugs, medicaments and biological substances; Z3A.18 18 weeks gestation of pregnancy
CPT/HCPCS: 36415; 76805; 80053; 81001; 85025; 87086; 99284; J7030

== ENCOUNTER 2019-09-26 14:06 | Observation (INO) | payer OTHER ==
[2019-09-26] MEDS ORDERED: IV RINGERS,LACTATED 1000ML 1,000 ML IV PRN (14:45)
[2019-09-26 14:56] LABS: BILIRUBIN,URINE NEGATIVE (NEG); CLARITY,URINE CLEAR; COLOR,URINE YELLOW; NITRITE,URINE NEGATIVE (NEG); PH,URINE 7.5 (<5.0-8.0); PROTEIN,URINE NEGATIVE (NEG-TRACE); UROBILINOGEN,URINE 0.2 mg/dL (0.2 mg/dL)
[2019-09-26 15:03] LABS: SQUAMOUS EPITHELIAL CELL,UR MOD /LPF
[2019-09-26 15:04] LABS: BACTERIA,URINE FEW /HPF (0-FEW); RBC,URINE 0 /HPF (0-2)
[2019-09-26] MEDS ORDERED: TERBUTALINE 1 MG/ML VIAL. SQ ONE (16:15)
[2019-09-26 16:25] VITALS: BP 112/55
== END 2019-09-26 17:15 | disposition home or self-care (01) ==
LOC: 3 SO LND 14:06
PROVIDERS: ADMIT Obstetrics & Gynecology; ATTEND Obstetrics & Gynecology
DX: O62.9 Abnormality of forces of labor, unspecified (principal); O42.913 Preterm premature rupture of membranes, unspecified as to length of time between rupture and onset of labor, third trimester; O99.89 Other specified diseases and conditions complicating pregnancy, childbirth and the puerperium; M54.9 Dorsalgia, unspecified; Z3A.30 30 weeks gestation of pregnancy
CPT/HCPCS: 81001; 96372; G0378; G0379; J3105; J7120

== ENCOUNTER 2019-10-01 10:51 | Observation (INO) | payer OTHER ==
[~2019-10-01] VITALS: Ht 165.1 cm; Wt 77.6 kg
[2019-10-01 11:33] LABS: BILIRUBIN,URINE NEGATIVE (NEG); CLARITY,URINE CLEAR; COLOR,URINE YELLOW; NITRITE,URINE NEGATIVE (NEG); PROTEIN,URINE NEGATIVE (NEG-TRACE); UROBILINOGEN,URINE 0.2 mg/dL (0.2 mg/dL)
[2019-10-01 11:53] LABS: SQUAMOUS EPITHELIAL CELL,UR MOD /LPF
[2019-10-01 11:54] LABS: BACTERIA,URINE 0 /HPF (0-FEW); WBC,URINE OCC /HPF (0-4)
--- NOTE | 2019-10-01 12:00 | PDOC1 ---
OB - History Hx of Present Care: Good Care Ultrasounds: Normal mid trimester US Obstetrical Complications: None Medical Complications: None Past Family/Social History * Past Medical, Surgical, Family and Obstetric Histories reviewed from chart. Blood Type: O+ Rubella: Immune RPR/VDRL: Negative GBS Status: Unknown HBsAG: Negative OB - Chief Complaint & HPI Date of Admission: Date of Admission: Oct 01, 2019 at 10:51 Chief Complaint/History : 4 Para: 3 EGA: 30 Reason for admission: vaginal bleeding Admission Nurse Assessment Rev: Yes OB - Admission Exam Physical Exam HEENT: Normal Heart: Regular Rate Lungs: Clear, Equal Abdomen: Gravid, Non tender, Soft Extremities: No tenderness or swelling Reflexes: Normal Cervical Dilatation: 1cm Effacement: 25% Station: Ballotable Membranes: Intact Heart Rate: Normal Accelerations: Accelerations Present Decelerations: No decelerations Contractions on Admission: None Intensity: Mild Text A: 30 wks IUP H/o PTD x 2 Vaginal bleeding at home. P: Admit for vaginal bleeding. No active bleeding. Start Celestone 12mg IM q 24 hours x 2. IV hydration. OB sono EFW 3 lbs. 4 oz. , cervical length 4.6 cm, placenta posterior and ENEIDA 12.5 cm. MAYA SALAZAR Jr, MD Oct 01, 2019 12:00
--- NOTE | 2019-10-01 12:21 | RAD ---
EXAM: Obstetrics sonogram. HISTORY: labor. TECHNIQUE: Sonographic imaging of a gravid uterus was performed. COMPARISON: None. FINDINGS: There is a single intrauterine fetus in cephalic presentation with a normal heart rate of 147 bpm. There is a grade 1 posterior placenta without evidence of placenta previa. The cervix is closed and measures 4.6 cm in length. The biparietal diameter is 7.90 cm, corresponding with 31 weeks and 5 days. The head circumference is 27.32 cm, corresponding with 29 weeks and 6 days. The abdominal circumference is 24.85 cm, corresponding 29 weeks and 1 day. The femoral length is 5.92 cm, corresponding with 30 weeks and 6 days. The estimated gestational age patient combined also measurements is 30 weeks and 3 days and the estimated weight is 1479 g. The estimated due date is 09/06/2019. The anatomy is not formally assessed on this exam. The amniotic fluid index is normal at 12.5 cm. IMPRESSION: 1. Single intrauterine fetus in cephalic presentation with normal heart rate and gestational age based on ultrasound measurements of 30 weeks and 3 days. The estimated weight is at the 35th percentile for a gestational age of 30 weeks and 6 days based on LMP. 2. Normal ENEIDA of 12.5 cm and normal cervical length. Electronically signed by: Magali Cook MD (10/01/2019 12:17 PM) [id number]
[2019-10-01] MEDS ORDERED: BETAMET ACET&NA PHOS 30 MG/5 ML VIAL. IM SCH (12:30)
[2019-10-01] MEDS: IV RINGERS,LACTATED 1000ML 1,000 ML IV PRN ×2 (12:48→15:37)
[2019-10-01 12:51] LABS: BASO % 0 % (0-3); EOS # 0.1 x10^3/uL (0.0-0.7); EOS % 1 % (0-3); HEMATOCRIT 34.4 % (36.0-47.0); HEMOGLOBIN 11.9 g/dL (12.0-15.5); LYMPH # 1.8 x10^3/uL (1.0-4.8); LYMPH % 19 % (24-48); MEAN CORPUSCULAR HEMOGLOBIN 31 pg (25-35); MEAN CORPUSCULAR HGB CONC 35 g/dL (31-37); MEAN CORPUSCULAR VOLUME 90 fL (79-100); MONO # 0.7 x10^3/uL (0.0-1.1); MONO % 7 % (0-9); NEUT # 6.8 x10^3/uL (1.8-7.7); NEUT % 73 % (31-73); PLATELET COUNT 197 x10^3/uL (140-400); RED BLOOD COUNT 3.83 x10^6/uL (3.50-5.40); WHITE BLOOD COUNT 9.3 x10^3/uL (4.0-11.0)
[2019-10-01 13:02] LABS: CALCIUM 8.1 mg/dL (8.5-10.1); CREATININE 0.6 mg/dL (0.6-1.0); GFR 123.9; POTASSIUM 3.9 mmol/L (3.5-5.1)
[2019-10-01] MEDS ORDERED: TERBUTALINE 1 MG/ML VIAL. SQ ONE (17:15)
[2019-10-01] MEDS ORDERED: MAGNESIUM SULFATE 2GM 50 ML IV ONE (18:30)
[2019-10-01] MEDS ORDERED: MAGNESIUM SULFATE 20GM 500 ML IV SCH (18:30)
[2019-10-01] MEDS ORDERED: MAGNESIUM SULFATE 4GM 100 ML IV ONE (18:30)
[2019-10-01 18:52] VITALS: BP 111/59
[2019-10-01] MEDS ORDERED: ONDANSETRON PF 4 MG/2 ML VIAL. IVP PRN (21:15)
== END 2019-10-01 22:09 | disposition short-term general hospital (02) ==
LOC: OBSVTOIN 10:51 → INTOOBSV 10:51 → 3 SO LND 10:51
PROVIDERS: ADMIT Obstetrics & Gynecology; ATTEND Obstetrics & Gynecology
DX: Z03.818 Encounter for observation for suspected exposure to other biological agents ruled out (principal); O46.93 Antepartum hemorrhage, unspecified, third trimester; Z3A.30 30 weeks gestation of pregnancy
CPT/HCPCS: 36415; 76815; 80048; 81001; 85025; 96365; 96366; 96372; 96375; G0378; G0379; J0702; J2405; J3105; J3475; J7120; U0003

== ENCOUNTER 2020-02-23 09:22 | Emergency (ER) | payer OTHER ==
[~2020-02-23] VITALS: Ht 165.1 cm; Wt 71.9 kg
[2020-02-23 09:36] LABS: BILIRUBIN,URINE NEGATIVE (NEG); CLARITY,URINE CLEAR; COLOR,URINE YELLOW; NITRITE,URINE NEGATIVE (NEG); PROTEIN,URINE NEGATIVE (NEG-TRACE); UROBILINOGEN,URINE 0.2 mg/dL (0.2 mg/dL)
[2020-02-23 09:43] VITALS: BP 124/87
[2020-02-23 09:53] LABS: BACTERIA,URINE 0 /HPF (0-FEW); RBC,URINE 0 /HPF (0-2); WBC,URINE 0 /HPF (0-4)
[2020-02-23] MEDS ORDERED: KETOROLAC 15 MG/ML VIAL. IVP ONE (10:00)
[2020-02-23] MEDS ORDERED: METOCLOPRAMIDE HCL 10 MG/2 ML VIAL. IVP ONE (10:00)
[2020-02-23] MEDS ORDERED: IV NORMAL SALINE 1000ML BAG 1,000 ML IV ONE (10:00)
--- NOTE | 2020-02-23 10:11 | PHYS DOC ---
Past Medical History Past Medical History: No Pertinent History, Kidney Stone Additional Past Medical Histor: preeclampsia Past Surgical History: Cholecystectomy Smoking Status: Never Smoker Alcohol Use: None Drug Use: None General Adult EDM: Chief Complaint: ABDOMINAL PAIN HPI: HPI: Patient is a 24 year old female who presents with left lower quadrant abdominal pain. She states the pain started 2 days ago when she was working as a [employer]. She reports pain is a sharp burning sensation in epigastric region that radiates down her left lower quadrant. Pain is intermittent and could last for hours. No known triggers. She has tried taking Tylenol and ibuprofen at home with minimal relief. Pain associated nausea, flushing, tachycardia, and shortness of breath. She would have to pause what she is doing due to the pain until it subsides. She was tested negative for COVID on 02/21. Last menstrual period 01/28/20. Denies fever, vomiting, diarrhea, vaginal discharge, dysuria/urgency/frequency. She rates her pain at 7-9/10. Review of Systems: Review of Systems: Constitutional: Denies fever, weight loss. Eyes: Denies redness or eye pain HENT: Denies nasal congestion or sore throat. Respiratory: +SOB. Denies cough, wheezing. Cardiovascular: +Palpitations. Denies chest pain. GI: +Nausea, +abdominal pain. Denies diarrhea or vomiting. : Denies dysuria or hematuria. Musculoskeletal: Denies back pain or joint pain Integument: Denies rash or skin lesions Neurologic: Denies headache, focal weakness or sensory changes Complete systems were reviewed and found to be within normal limits, except as documented in this note. Heart Score: Risk Factors: Risk Factors: DM, Current or recent (<one month) smoker, HTN, HLP, family history of CAD, obesity. Risk Scores: Score 0 - 3: 2.5% MACE over next 6 weeks - Discharge Home Score 4 - 6: 20.3% MACE over next 6 weeks - Admit for Clinical Observation Score 7 - 10: 72.7% MACE over next 6 weeks - Early Invasive Strategies Family History: Family History: Non-contributory. Current Medications: Current Medications Medications (Trade) Dose Ordered [facility] Start Time Stop Time Status Last Admin Dose Admin Ketorolac Tromethamine (Toradol 15mg Vial) 15 mg 1X ONCE 02/23/20 10:00 02/23/20 10:01 DC Metoclopramide HCl (Reglan Vial) 10 mg 1X ONCE 02/23/20 10:00 02/23/20 10:01 DC Sodium Chloride 1,000 ml @ 1,000 mls/hr 1X ONCE 02/23/20 10:00 02/23/20 10:59 Allergies: Allergies: Allergies Coded Allergies Type Severity Reaction Last Updated Verified escitalopram Allergy Intermediate 04/01/19 No Physical Exam: PE: Constitutional: Well developed, well nourished, no acute distress, non-toxic appearance HENT: Normocephalic, atraumatic Eyes: Conjunctiva normal, no discharge Neck: Normal range of motion, no tenderness, supple Lungs & Thorax: No respiratory distress, equal chest rise and fall Abdomen: Soft, BS x4, tenderness to palpation of LLQ Skin: Warm, dry, no erythema, no rash Back: No tenderness, no CVA tenderness Extremities: No tenderness, ROM intact, no edema Neurologic: Alert and oriented X 3, no focal deficits noted Psychologic: Affect normal, judgment normal Current Patient Data: Labs: Laboratory Tests Test 02/23/20 09:25 02/23/20 09:29 Urine Collection Type Unknown Urine Color Yellow Urine Clarity Clear Urine pH 7.0 (<5.0-8.0) Urine Specific [place] 1.025 (1.000-1.030) Urine Protein Negative mg/dL (NEG-TRACE) Urine Glucose (UA) Negative mg/dL (NEG) Urine Ketones (Stick) Negative mg/dL (NEG) Urine Blood Negative (NEG) Urine Nitrite Negative (NEG) Urine Bilirubin Negative (NEG) Urine Urobilinogen Dipstick 0.2 mg/dL (0.2 mg/dL) Urine Leukocyte Esterase Negative (NEG) Urine RBC 0 /HPF (0-2) Urine WBC 0 /HPF (0-4) Urine Squamous Epithelial Cells Many /LPF Urine Bacteria 0 /HPF (0-FEW) Urine Mucus Marked /LPF POC Urine HCG, Qualitative Hcg negative (Negative) Radiology/Procedures: Radiology/Procedures: PROCEDURE: CT ABDOMEN PELVIS WO CONTRAST EXAMINATION: CT ABDOMEN+PELVIS WO (CT ABDOMEN/PELVIS WITHOUT IV CONTRAST) CLINICAL HISTORY: Left lower quadrant pain concerning for left ureteral calculus TECHNIQUE: Non-IV contrast imaging of the abdomen and pelvis was performed using standard technique, scanning from just above the dome of the diaphragm to the symphysis pubis. Unenhanced imaging is limited for the evaluation of some intra-abdominal and pelvic pathology. CT Dose Reduction Employed: One or more of the following individualized dose reduction techniques were utilized for this examination: 1. Automated exposure control 2. Adjustment of the mA and/or kV according to patient size 3. Use of iterative reconstruction technique. COMPARISON: 08/13/2017 FINDINGS: Partially visualized heart and lung bases unremarkable. Cholecystectomy. Liver, pancreas, spleen, and adrenal glands unremarkable. Small nonobstructive calculus in the midpole the left kidney, similar to prior study. Bilateral kidneys otherwise unremarkable. No ureteral or bladder calculi definitively visualized. No evidence of obstructive uropathy. Left pelvic phle boliths, similar to prior study. Minimally filled urinary bladder suboptimally evaluated. Uterus and adnexa unremarkable. No bowel dilation. Minimal left colonic diverticulosis without evidence of diverticulitis on limited noncontrast evaluation. Normal air-filled appendix. No abdominal aortic or iliac artery aneurysm. Multiple prominent but nonenlarged mesenteric lymph nodes, similar to prior study. No acute osseous abnormality. IMPRESSION: No evidence of acute abdominopelvic abnormality. Persistent small nonobstructive left renal calculus. No evidence of additional urinary calculi or obstructive uropathy. Electronically signed by: Raj Ribeiro DO (02/23/2020 10:26 AM) [facility] PROCEDURE: PELVIS W/TV EXAMINATION: US PELVIS W/TV (PELVIC ULTRASOUND) HISTORY: Left pelvic pain concerning for ovarian pathology TECHNIQUE: Sonography of the pelvis was performed by transvaginal and transabdominal (limited) techniques. COMPARISON: CT abdomen/pelvis same day, pelvic ultrasound 08/13/2017 FINDINGS: Uterus: 7.8 x 6.0 x 5.0 cm - Myometrium: Normal sonographic appearance. - Endometrium: 10 mm - Cervix: Normal Right ovary: 3.3 x 1.7 x 1.8 cm - Normal sonographic appearance. Arterial and venous flow is present throughout the ovary on color Doppler imaging with normal spectral waveforms. Left ovary: 4.7 x 2.0 x 3.1 cm - Asymmetrically prominent compared to the right, otherwise normal sonographic appearance. Arterial and venous flow is present throughout the left ovary on color Doppler imaging with normal spectral waveforms. Pelvic free fluid: Small free fluid is likely physiologic. IMPRESSION: Nonspecific asymmetrically prominent left ovary, new since comparison ultrasound in 2018. No evidence of discrete left ovarian lesion. Normal left ovarian arterial and venous flow. Course & Med Decision Making: Course & Med Decision Making Pertinent Labs and Imaging studies reviewed. (See chart for details) Pt is a previously healthy 24 year old female who presents with burning epigastric pain that radiates down to LLQ. Differentials include nephrolithiasis vs ruptured ovarian cyst vs ovarian torsion vs colitis vs GERD. PID/STDs unlikely due to negative workup at OB last week. UA negative for infection. CT abdomen did not show any acute abdominal pathology, only a small left renal calculus. CMP, CBC unremarkable. Pelvic US revealed nonspecific asymmetry prominent on the left ovary, new since 2018. Pain and nausea improved with Reglan and Ketorolac. Imaging and labs negative for acute abdominal pathology. Patient stable for discharge with outpatient follow-up with PCP. Discussed fin zekes and plan with patient, who acknowledges understanding and agreement. Sahara Disclaimer: Sahara Disclaimer: This electronic medical record was generated, in whole or in part, using a voice recognition dictation system. Departure Departure Impression: Primary Impression: Abdominal pain Qualified Codes: R10.32 - Left lower quadrant pain Disposition: 01 DC HOME SELF CARE/HOMELESS Condition: STABLE Referrals: NO PCP (PCP) Patient Instructions: Abdominal Pain, [id number] Additional Instructions: Take over the counter Ibuprofen for Tylenol as needed for pain or discomfort. Increase fluid hydration. MARGI KHALIL DO Feb 23, 2020 10:11
--- NOTE | 2020-02-23 10:28 | RAD ---
EXAMINATION: CT ABDOMEN+PELVIS WO (CT ABDOMEN/PELVIS WITHOUT IV CONTRAST) CLINICAL HISTORY: Left lower quadrant pain concerning for left ureteral calculus TECHNIQUE: Non-IV contrast imaging of the abdomen and pelvis was performed using standard technique, scanning from just above the dome of the diaphragm to the symphysis pubis. Unenhanced imaging is aclix ited for the evaluation of some intra-abdominal and pelvic pathology. CT Dose Reduction Employed: One or more of the following individualized dose reduction techniques wer e utilized for this examination: 1. Automated exposure control 2. Adjustment of the mA and/or kV ac cording to patient size 3. Use of iterative reconstruction technique. COMPARISON: 08/13/2017 FINDINGS: Partially visualized heart and lung bases unremarkable. Cholecystectomy. Liver, pancreas, spleen, and adrenal glands unremarkable. Small nonobstructive calculus in the midpole the left kidney, similar to prior study. Bilateral kidne ys otherwise unremarkable. No ureteral or bladder calculi definitively visualized. No evidence of obs tructive uropathy. Left pelvic phleboliths, similar to prior study. Minimally filled urinary bladder suboptimally evaluated. Uterus and adnexa unremarkable. No bowel dilation. Minimal left colonic diverticulosis without evidence of diverticulitis on limited noncontrast evaluation. Normal air-filled appendix. No abdominal aortic or iliac artery aneurysm. Multiple prominent but nonenlarged mesenteric lymph nod es, similar to prior study. No acute osseous abnormality. IMPRESSION: No evidence of acute abdominopelvic abnormality. Persistent small nonobstructive left renal calculus. No evidence of additional urinary calculi or obs tructive uropathy. Electronically signed by: Raj Ribeiro DO (02/23/2020 10:26 AM) RAYSHAWN
[2020-02-23 11:01] LABS: BASO % 1 % (0-3); EOS # 0.1 x10^3/uL (0.0-0.7); EOS % 1 % (0-3); HEMATOCRIT 35.8 % (36.0-47.0); HEMOGLOBIN 12.2 g/dL (12.0-15.5); LYMPH # 1.5 x10^3/uL (1.0-4.8); LYMPH % 26 % (24-48); MEAN CORPUSCULAR HEMOGLOBIN 31 pg (25-35); MEAN CORPUSCULAR HGB CONC 34 g/dL (31-37); MEAN CORPUSCULAR VOLUME 90 fL (79-100); MONO # 0.4 x10^3/uL (0.0-1.1); MONO % 7 % (0-9); NEUT # 3.9 x10^3/uL (1.8-7.7); NEUT % 66 % (31-73); PLATELET COUNT 192 x10^3/uL (140-400); RED BLOOD COUNT 3.96 x10^6/uL (3.50-5.40); RED CELL DISTRIBUTION WIDTH 12.4 % (11.5-14.5)
[2020-02-23 11:07] LABS: CALCIUM 8.8 mg/dL (8.5-10.1); CREATININE 0.5 mg/dL (0.6-1.0); GFR 152.9
[2020-02-23 11:12] LABS: ALBUMIN 3.6 g/dL (3.4-5.0); ALBUMIN/GLOBULIN RATIO 1.1 (1.0-1.7); MAGNESIUM 1.9 mg/dL (1.8-2.4); TOTAL BILIRUBIN 0.3 mg/dL (0.2-1.0); TOTAL PROTEIN 6.8 g/dL (6.4-8.2)
--- NOTE | 2020-02-23 11:34 | RAD ---
EXAMINATION: US PELVIS W/TV (PELVIC ULTRASOUND) HISTORY: Left pelvic pain concerning for ovarian pathology TECHNIQUE: Sonography of the pelvis was performed by transvaginal and transabdominal (limited) techni ques. COMPARISON: CT abdomen/pelvis same day, pelvic ultrasound 08/13/2017 FINDINGS: Uterus: 7.8 x 6.0 x 5.0 cm - Myometrium: Normal sonographic appearance. - Endometrium: 10 mm - Cervix: Normal Right ovary: 3.3 x 1.7 x 1.8 cm - Normal sonographic appearance. Arterial and venous flow is present throughout the ovary on color D oppler imaging with normal spectral waveforms. Left ovary: 4.7 x 2.0 x 3.1 cm - Asymmetrically prominent compared to the right, otherwise normal sonographic appearance. Arterial a nd venous flow is present throughout the left ovary on color Doppler imaging with normal spectral wav eforms. Pelvic free fluid: Small free fluid is likely physiologic. IMPRESSION: Nonspecific asymmetrically prominent left ovary, new since comparison ultrasound in 2018. No evidence of discrete left ovarian lesion. Normal left ovarian arterial and venous flow. Electronically signed by: Raj Ribeiro DO (02/23/2020 11:32 AM) [facility]
== END 2020-02-23 11:36 | disposition home or self-care (01) ==
LOC: ER 09:22
DX: R10.32 Left lower quadrant pain (principal); R20.8 Other disturbances of skin sensation; R06.02 Shortness of breath; Z87.442 Personal history of urinary calculi; Z90.49 Acquired absence of other specified parts of digestive tract
CPT/HCPCS: 36415; 74176; 76830; 76856; 80053; 81001; 81025; 83690; 83735; 85025; 96361; 96374; 96375; 99285; J1885; J2765; J7030

== ENCOUNTER 2020-04-24 09:44 | Emergency (ER) | payer OTHER ==
[~2020-04-24] VITALS: Ht 165.1 cm; Wt 63.6 kg
[2020-04-24] MEDS ORDERED: IV NORMAL SALINE 1000ML BAG 1,000 ML IV ONE (10:15)
[2020-04-24] MEDS ORDERED: diphenhydrAMINE 50 MG/ML VIAL IVP ONE (10:15)
[2020-04-24] MEDS ORDERED: METOCLOPRAMIDE HCL 10 MG/2 ML VIAL. IVP ONE (10:15)
--- NOTE | 2020-04-24 10:16 | PHYS DOC ---
Past Medical History Past Medical History: No Pertinent History, Kidney Stone Additional Past Medical Histor: preeclampsia Past Surgical History: Cholecystectomy Smoking Status: Never Smoker Alcohol Use: None Drug Use: None General Adult EDM: Chief Complaint: ABDOMINAL PAIN HPI: HPI: 24F with prior cholecystectomy, p/w 2 weeks of sharp colicky epigastric burning sensation, associated with nausea. Slightly worsened with oral intake. Reports prior history of cholecystectomy, but no other prior abdominal surgeries. No other aggravating or alleviating factors. Review of Systems: Review of Systems: Gen: No fever, chills. ENT: No nasal congestion, sore throat. CV: No CP, palpitations. Resp. No SOB, cough. GI: No V/D. Reports epigastric pain, nausea. : No dysuria, hematuria. Neuro: No MISHRA, dizziness, weakness. Remainder of systems reviewed and negative unless otherwise specified. Heart Score: Risk Factors: Risk Factors: DM, Current or recent (<one month) smoker, HTN, HLP, family history of CAD, obesity. Risk Scores: Score 0 - 3: 2.5% MACE over next 6 weeks - Discharge Home Score 4 - 6: 20.3% MACE over next 6 weeks - Admit for Clinical Observation Score 7 - 10: 72.7% MACE over next 6 weeks - Early Invasive Strategies Allergies: Allergies: Allergies Coded Allergies Type Severity Reaction Last Updated Verified escitalopram Allergy Intermediate 04/01/19 No Physical Exam: PE: Gen: NAD. Well nourished. Head: NC/AT. Eyes: No scleral icterus. No conjunctival injection. ENT: MMM. Neck: Supple. CV: RRR. Peripheral pulses intact. Resp: CTAB. Abd: Soft. Nondistended. Mild epigastric tenderness to deep palpation without rebound, guarding, or rigidity. No flank percussion tenderness. MSK: No peripheral cyanosis. No edema. Neuro: Awake and alert. Skin. Warm. Dry. Psych: Appropriate mood & affect. Current Patient Data: Labs: Laboratory Tests Test 04/24/20 10:04 POC Urine HCG, Qualitative Hcg negative (Negative) EKG: EKG: [] Radiology/Procedures: Radiology/Procedures: [] Course & Med Decision Making: Course & Med Decision Making Pertinent Labs and Imaging studies reviewed. (See chart for details) In summary, 24-year-old female who presents with 2 weeks of epigastric pain. Unremarkable physical examination. Benign abdomen. No flank percussion tenderness. Basic abdominal lab work has been ordered. The patient however, states that she had a personal issue to tend to. She chose to leave AMA, and has full decision making capacity to do so. Sahara Disclaimer: Sahara Disclaimer: This electronic medical record was generated, in whole or in part, using a voice recognition dictation system. Departure Departure Impression: Primary Impression: Epigastric pain Disposition: 07 AMA/ELCLARISSED/LWBS Condition: STABLE Referrals: NO PCP (PCP) KATHY COOK DO Apr 24, 2020 10:16
[2020-04-24 10:30] VITALS: BP 104/68
[2020-04-24 10:36] LABS: BASO % 1 % (0-3); EOS # 0.1 x10^3/uL (0.0-0.7); EOS % 2 % (0-3); HEMATOCRIT 37.6 % (36.0-47.0); HEMOGLOBIN 12.5 g/dL (12.0-15.5); LYMPH # 1.6 x10^3/uL (1.0-4.8); LYMPH % 35 % (24-48); MEAN CORPUSCULAR HEMOGLOBIN 30 pg (25-35); MEAN CORPUSCULAR HGB CONC 33 g/dL (31-37); MEAN CORPUSCULAR VOLUME 89 fL (79-100); MONO # 0.4 x10^3/uL (0.0-1.1); MONO % 8 % (0-9); NEUT # 2.5 x10^3/uL (1.8-7.7); NEUT % 55 % (31-73); PLATELET COUNT 200 x10^3/uL (140-400); RED BLOOD COUNT 4.23 x10^6/uL (3.50-5.40); RED CELL DISTRIBUTION WIDTH 12.3 % (11.5-14.5); WHITE BLOOD COUNT 4.6 x10^3/uL (4.0-11.0)
[2020-04-24 10:43] LABS: BILIRUBIN,URINE NEGATIVE (NEG); CLARITY,URINE CLEAR; COLOR,URINE YELLOW; NITRITE,URINE NEGATIVE (NEG); PROTEIN,URINE NEGATIVE (NEG-TRACE); UROBILINOGEN,URINE 0.2 mg/dL (0.2 mg/dL)
[2020-04-24 10:53] LABS: CALCIUM 8.9 mg/dL (8.5-10.1); CREATININE 0.7 mg/dL (0.6-1.0); GFR 103.7; POTASSIUM 3.6 mmol/L (3.5-5.1); RBC,URINE 0 /HPF (0-2)
[2020-04-24 10:54] LABS: BACTERIA,URINE FEW /HPF (0-FEW)
[2020-04-24 10:57] LABS: ALBUMIN 3.9 g/dL (3.4-5.0); ALBUMIN/GLOBULIN RATIO 1.1 (1.0-1.7); TOTAL BILIRUBIN 0.4 mg/dL (0.2-1.0); TOTAL PROTEIN 7.3 g/dL (6.4-8.2)
== END 2020-04-24 10:38 | disposition left against medical advice (07) ==
LOC: ER 09:44
DX: R10.13 Epigastric pain (principal); R11.0 Nausea; Z90.49 Acquired absence of other specified parts of digestive tract
CPT/HCPCS: 36415; 80053; 81001; 81025; 83690; 83735; 85025; 96361; 96374; 96375; 99284; J1200; J2765; J7030

== ENCOUNTER → 2020-04-29 | Outpatient (CLI) | payer OTHER ==
[2020-04-24 10:30] VITALS: BP 104/68
[~2020-04-29] MED LIST changes: +ALPR0.5T PO; +OXYC-325 PO
== END ==
LOC: LAB 09:59
PROVIDERS: ATTEND Obstetrics & Gynecology
DX: Z01.812 Encounter for preprocedural laboratory examination (principal); Z20.822 Contact with and (suspected) exposure to COVID-19
CPT/HCPCS: U0003

== ENCOUNTER 2020-05-01 08:31 | Day surgery (SDC) | payer OTHER ==
[~2020-05-01 08:31] MED LIST changes: -ALPR0.5T PO; +HYDROmorphone 2 MG/ML VIAL IVP PRN; +IV RINGERS,LACTATED 1000ML 1,000 ML IV SCH; -OXYC-325 PO; +PROCHLORPERAZINE 10 MG/2 ML VIAL. IVP PRN; +fentaNYL PF VIAL 100 MCG/2 ML VIAL IVP PRN
[2020-05-01] MEDS ORDERED: ALPR0.5T PO (08:52)
[2020-05-01] MEDS ORDERED: PROPOFOL 10 MG/ML (20ML) VIAL. IV ONE (10:00)
[2020-05-01] MEDS ORDERED: fentaNYL PF VIAL 100 MCG/2 ML VIAL ONE ×2 (10:00→10:59)
[2020-05-01] MEDS ORDERED: LIDOCAINE 2% PF 5 ML VIAL. ONE (10:00)
[2020-05-01] MEDS ORDERED: ROCURONIUM 100 MG/10 ML VIAL. ONE (10:01)
[2020-05-01] MEDS ORDERED: SUCCINYLCHOLINE 200 MG/10 ML VIAL. ONE (10:01)
[2020-05-01] MEDS ORDERED: BUPIVACAINE-EPI 0.25% 30 ML VIAL KIT. ONE (10:10)
[2020-05-01] MEDS ORDERED: DEXAMETHASONE SOD PHOS 4 MG/ML VIAL ONE (10:23)
[2020-05-01] MEDS ORDERED: ONDANSETRON PF 4 MG/2 ML VIAL. ONE (10:23)
[2020-05-01] MEDS ORDERED: NEOSTIGMINE 10 MG/10 ML VIAL. ONE (10:37)
[2020-05-01] MEDS ORDERED: GLYCOPYRROLATE 1 MG/5 ML VIAL. ONE (10:37)
--- NOTE | 2020-05-01 10:44 | PDOC ---
BRIEF OPERATIVE NOTE Date: May 01, 2020 Pre-Op Diagnosis Sterilization Post-Op Diagnosis Same Procedure Performed [facility] Surgeon Dr. Orellana Water Supply Engineer staffing administrator: Babar Anesthesia Type: General Blood Loss 5 ml Specimens Obtained none Findings nml size uterus, nml fallopian tubes and ovaries tammi. Complications none Operative Note see dictation MAYA ORELLANA Jr, MD May 01, 2020 10:44
--- NOTE | 2020-05-01 10:45 | DISCH ---
DISCHARGE INSTRUCTIONS Condition on Discharge Condition on Discharge: Stable Activity After Discharge Activity Instructions for Disc: Activity as tolerated Lifting Instructions after Dis: No heavy lifting Driving Instructions after Dis: Do not drive today Diet after Discharge Diet after Discharge: Regular Contacting the DRSrinivas after DC Call your doctor for: Concerns you may have Follow-Up Follow up with: Dr. Orellana in 1 week MAAY ORELLANA Jr, MD May 01, 2020 10:45
--- NOTE | 2020-05-01 10:54 | OP ---
DATE OF SURGERY: 05/01/2020 PREOPERATIVE DIAGNOSIS: Sterilization. POSTOPERATIVE DIAGNOSIS: Sterilization. PROCEDURE: Laparoscopic BTL. SURGEON: Maya Orellana MD [employer]: Babar. ANESTHESIA: GETA. ESTIMATED BLOOD LOSS: 5 mL. COMPLICATIONS: None. FINDINGS: Normal size uterus, normal fallopian tubes and ovaries bilaterally. SUMMARY: A 24-year-old female who desired permanent sterilization, was counseled on the risks, benefits and expectations and voiced clear understanding to proceed. DESCRIPTION OF PROCEDURE: The patient was taken to surgery suite and placed in dorsal lithotomy position. She was prepped with Betadine solution for vaginal prep and ChloraPrep for abdominal prep. After adequate anesthesia, bivalve speculum was placed vaginally. Anterior lip of the cervix grasped with a single tooth tenaculum. The uterine acorn manipulator was then placed. The bivalve speculum was removed. Attention was now placed on abdomen. Small transverse skin incision was made just below the umbilicus with a scalpel. Veress needle was then placed through the infraumbilical incision site. The abdomen was allowed to insufflate up to 1-1/2 liters CO2 gas. The Veress needle was then removed, 5 mm trocar was placed. Scope was positioned. Uterus appeared normal size. Normal fallopian tubes and ovaries appeared bilaterally. An additional incisions were made in the left lower quadrant, which an 8 mm trocar was placed. With aid of the Filshie clip applicator, the Filshie clip was applied to the right fallopian tube in isthmus region, totally occluding the fallopian tube. Same process took place with left adnexa. The trocars were then removed under direct visualization. Abdomen was allowed to deflate as much as possible along with mechanical manipulation. The two skin incisions were reapproximated using 4-0 Vicryl suture in subcuticular manner. A 0.25% Marcaine with epinephrine was injected at each incision site. Single tooth tenaculum and uterine acorn manipulator were then removed. The patient tolerated the procedure well and was taken to recovery room in stable condition. Sponge and needle count correct x 3. MAYA ORELLANA MD DR: JULIAN/shay JOB#: [id number] / [id number]
[2020-05-01] MEDS: fentaNYL PF VIAL 100 MCG/2 ML VIAL IVP PRN ×2 (11:01→11:08)
[2020-05-01] MEDS ORDERED: OXYC-325 PO (11:16)
[2020-05-01] MEDS ORDERED: MORPHINE SULFATE 2 MG/ML VIAL. ONE (11:21)
[2020-05-01] MEDS: MORPHINE SULFATE 2 MG/ML VIAL. IVP PRN ×2 (11:25→11:35)
[2020-05-01] MEDS ORDERED: oxyCODONE/APAP 5/325 1 TAB TABLET PO ONE ×2 (11:30)
[2020-05-01 12:05] VITALS: BP 134/74
== END 2020-05-01 12:25 | disposition home or self-care (01) ==
LOC: SURG 08:31
PROVIDERS: ATTEND Obstetrics & Gynecology
DX: Z30.2 Encounter for sterilization (principal); F41.9 Anxiety disorder, unspecified; Z79.899 Other long term (current) drug therapy; Z90.49 Acquired absence of other specified parts of digestive tract; Z98.890 Other specified postprocedural states; Z88.8 Allergy status to other drugs, medicaments and biological substances
CPT/HCPCS: 58671; 81025; J0330; J1100; J2270; J2405; J2704; J2710; J3010; J3490